=== PATIENT | female | born 1970 | race African-American/Black ===

== ENCOUNTER 2017-03-15 17:16 | Emergency (ER) | payer MEDICAID ==
[~2017-03-15] VITALS: Ht 177.8 cm; Wt 123.4 kg
[2017-03-15 18:00] VITALS: BP 198/141
[2017-03-15] MEDS ORDERED: HYDROcodone-ACET 10/325MG TAB PO ONE (20:30)
[2017-03-15] MEDS ORDERED: MORPHINE SULFATE 4 MG/ML SYRG IM ONE (20:45)
[2017-03-15] MEDS ORDERED: cloNIDine HCL 0.1 MG TAB PO ONE (21:15)
== END 2017-03-15 21:50 | disposition home or self-care (01) ==
LOC: ER 17:20
DX: S33.5XXA Sprain of ligaments of lumbar spine, initial encounter (principal); R51 Headache; I10 Essential (primary) hypertension; I25.2 Old myocardial infarction; Z86.73 Personal history of transient ischemic attack (TIA), and cerebral infarction without residual deficits; Z88.6 Allergy status to analgesic agent; Z85.43 Personal history of malignant neoplasm of ovary; Z86.711 Personal history of pulmonary embolism; G89.29 Other chronic pain; X58.XXXA Exposure to other specified factors, initial encounter; Y99.8 Other external cause status; Y93.89 Activity, other specified; Y92.89 Other specified places as the place of occurrence of the external cause
CPT/HCPCS: 70450; 72131; 96372; 99284; J2270

== ENCOUNTER 2017-05-20 14:10 | Emergency (ER) | payer MEDICARE, MEDICAID ==
[~2017-05-20] VITALS: Ht 175.3 cm; Wt 113.4 kg
[2017-05-20 15:00] LABS: Basophils # (auto) 0.1 uL; Basophils % (auto) 1.8 % (0.0-2.0); CONDITION Y; Eosinophils # (auto) 0 uL; Eosinophils % (auto) 0.5 % (0.0-7.0); Hematocrit 38.9 % (36.0-46.0); Hemoglobin 13.1 g/dL (12.2-16.2); Lymphocytes # (auto) 2.8 uL; Lymphocytes % (auto) 40.6 % (10.0-50.0); Mean Corpuscular Hemoglobin 32.3 pg (28.0-32.0); Mean Corpuscular Hgb Conc. 33.7 g/dL (32.0-36.0); Mean Corpuscular Volume 95.6 fL (80.0-100.0); Mean Platelet Volume 8.8 fL (7.4-10.4); Monocytes # (auto) 0.3 uL; Monocytes % (auto) 4.8 % (0.0-12.0); Neutrophils # (auto) 3.6 uL; Neutrophils % (auto) 52.3 % (37.0-80.0); Platelet Count (auto) 281 10^3/uL (140-450); White Blood Cell 6.8 10^3/uL (4.4-10.8)
[2017-05-20 15:22] LABS: Albumin 3.8 g/dL (3.4-5.0); BUN/Creatinine Ratio 17.9; Calcium 9.1 mg/dL (8.5-10.1); Potassium 3.6 mmol/L (3.5-5.1)
[2017-05-20 15:25] LABS: Bilirubin, Total 0.4 mg/dL (0.2-1.0)
[2017-05-21 00:12] LABS: Urine RBC None Seen /hpf (0 - 4)
[2017-05-21 00:25] LABS: Urine Bilirubin Negative (Negative); Urine Blood Negative /uL (Negative); Urine Color Yellow (Yellow); Urine Glucose Normal (Normal); Urine Ketone Negative (Negative); Urine Mucus MODERATE (None Seen); Urine Nitrite Negative (Negative); Urine Squamous Epithelial Cell MOD /hpf (<5); Urine Urobilinogen Normal (Negative)
[2017-05-21] MEDS ORDERED: NITROFURANTOIN (MONO) 100 mg CAP PO ONE (00:45)
[2017-05-21] MEDS ORDERED: KETOROLAC TROMETH 30 MG/ML 1ML VIAL IV ONE (01:00)
[2017-05-21] MEDS ORDERED: ONDANSETRON HCL 4 MG/2 ML VIAL IV ONE (01:00)
[2017-05-21 01:33] VITALS: BP 150/105
[2017-05-21] MEDS ORDERED: cloNIDine HCL 0.1 MG TAB PO ONE (01:45)
== END 2017-05-21 02:32 | disposition home or self-care (01) ==
LOC: ER 14:21
DX: N39.0 Urinary tract infection, site not specified (principal); I10 Essential (primary) hypertension; I25.2 Old myocardial infarction; Z86.711 Personal history of pulmonary embolism; Z90.710 Acquired absence of both cervix and uterus; Z88.6 Allergy status to analgesic agent; Z86.73 Personal history of transient ischemic attack (TIA), and cerebral infarction without residual deficits
CPT/HCPCS: 36415; 71010; 74176; 80053; 81001; 85025; 93970; 96374; 96375; 99285; J1885

== ENCOUNTER 2024-04-14 08:12 | Inpatient (IN) | payer BC, MEDICAID ==
[~2024-04-14] VITALS: Ht 175.3 cm; Wt 125.5 kg
[~2024-04-14 08:12] MED LIST: AMLO1TAB23 PO; DICL75TA3 PO; ESTR0.3T PO; HYDR25TA4 PO; METO25TA93 PO; OXYC325T14 PO
[2024-04-14] MEDS: ceFAZolin 2 GM/D5W50ml 50 ML IV ONE (09:03)
[2024-04-14] MEDS: TRANEXAMIC ACID 20 ML ONE (09:56)
[2024-04-14] MEDS: LIDOCAINE 2% JELLY 11ml (GLYDO) ONE (09:56)
[2024-04-14] MEDS: levoFLOXacin 750MG 150 ML IV ONE (10:00)
[2024-04-14] MEDS ORDERED: fentaNYL CITRATE 5 ML ONE ×2 (10:01→13:43)
[2024-04-14] MEDS ORDERED: fentaNYL CITRATE 100 MCG/2 ML VL ONE ×2 (10:01→12:52)
[2024-04-14] MEDS: SUCCINYLCHOLINE CHLORIDE 20 MG/ML 10ML VIAL IV ONE (10:02)
[2024-04-14] MEDS ORDERED: ONDANSETRON HCL 4 MG/2 ML VIAL ONE (11:58)
[2024-04-14] MEDS ORDERED: ePHEDrine SULFATE 50 MG/ML AMP ONE (12:23)
[2024-04-14] MEDS: LIDOCAINE W/ EPINEPHRINE 1% 20ML VIAL ONE (12:32)
[2024-04-14] MEDS ORDERED: MEPERIDINE HCL (50 MG/ML) 1 ML VIAL ONE (12:38)
[2024-04-14] MEDS ORDERED: PHENYLEPHRINE HCL 10 MG/ML VL ONE ×2 (12:58→14:22)
[2024-04-14] MEDS ORDERED: PROPOFOL 10 MG/ML 20 ML IV ONE ×2 (13:01→14:16)
[2024-04-14] MEDS ORDERED: NITROGLYCERIN 0.4 MG SL TAB SL PRN (15:15)
[2024-04-14] MEDS ORDERED: MORPHINE SULFATE INJ 2 MG/ml SYRG IV PRN ×2 (15:15)
[2024-04-14 15:45] VITALS: PULSE 88; RESP 18; O2SAT 100
[2024-04-14 15:54] VITALS: PULSE 65; RESP 15; O2SAT 100
[2024-04-14] MEDS: ONDANSETRON HCL 4 MG/2 ML VIAL IV ONE (16:15)
[2024-04-14] MEDS ORDERED: MEPERIDINE HCL (25 MG/ML) 1ML VIAL IV PRN (16:15)
[2024-04-14] MEDS: HYDROmorphone HCL 2 MG/ML VL/or syr IV PRN (16:47)
[2024-04-14 17:38] VITALS: PULSE 88; RESP 18
[2024-04-14] MEDS: D5W/SOD CHLO 0.9% 1,000 ML IV SCH (17:56)
[2024-04-14] MEDS ORDERED: LISI20TA56 PO (18:07)
[2024-04-14] MEDS: ONDANSETRON HCL 4 MG/2 ML VIAL IV PRN (18:14)
[2024-04-14] MEDS: ceFAZolin 1GM/50ML 50 ML IV SCH (18:29)
[2024-04-14] MEDS: HYDROcodone-ACET 10/325MG TAB PO PRN (18:42)
[2024-04-14 20:00] VITALS: PULSE 71; RESP 18; O2SAT 100
[2024-04-14 21:00] VITALS: BP 118/68; PULSE 71; RESP 19; TEMP 98.2; O2SAT 100
[2024-04-14] MEDS: DOCUSATE SOD 100 MG CAP PO SCH (21:06)
[2024-04-14] MEDS: CYCLOBENZAPRINE HCL 10 MG TAB PO SCH (21:06)
[2024-04-14] MEDS: HYDROcodone-ACET 10/325MG TAB PO ONE (21:24)
[2024-04-15] VITALS (7 sets, daily range): BP systolic 99–121; BP diastolic 59–95; PULSE 70–92; RESP 16–19; TEMP 98–99.1; O2SAT 93–100
[2024-04-15] MEDS: hydroCHLOROthiazide 25 MG TAB PO SCH (09:40)
[2024-04-15] MEDS: HYDROcodone-ACET 10/325MG TAB PO PRN (15:19)
[2024-04-15] MEDS: HYDROmorphone HCL 2 MG/ML VL/or syr IV PRN (15:27)
[2024-04-15] MEDS: ACETAMINOPHEN 325 MG TAB PO PRN (21:02)
[2024-04-16 00:34] VITALS: BP 107/70; PULSE 94; RESP 18; TEMP 98.3; O2SAT 97
[2024-04-16 04:49] VITALS: BP 110/72; PULSE 91; RESP 18; TEMP 99.1; O2SAT 95
[2024-04-16 08:39] VITALS: BP 125/74; PULSE 90; RESP 14; TEMP 98.5; O2SAT 95
[2024-04-16 12:46] VITALS: BP 109/55; PULSE 102; RESP 14; TEMP 99.5; O2SAT 95
[2024-04-16 17:00] VITALS: BP 107/74; PULSE 103; RESP 18; TEMP 98.7; O2SAT 98
[2024-04-16 21:49] VITALS: BP 130/80; PULSE 93; RESP 18; TEMP 98.5; O2SAT 95
[2024-04-17] VITALS (7 sets, daily range): BP systolic 124–147; BP diastolic 75–88; PULSE 69–111; RESP 17–20; TEMP 97.7–99; O2SAT 93–98
[2024-04-18 01:00] VITALS: BP 134/83; PULSE 88; RESP 17; TEMP 97.8; O2SAT 96
[2024-04-18 05:00] VITALS: BP 111/69; PULSE 95; RESP 19; TEMP 99.2; O2SAT 96
[2024-04-18 06:06] LABS: Eosinophils # (auto) 0.1 10 ^3/uL (0-0.8); Hematocrit 31.7 % (36.0-46.0); Hemoglobin 11.1 g/dL (12.2-16.2); Monocytes # (auto) 0.6 10 ^3/uL (0-1.3); Nucleated Red Blood Cells % 0.1 %; Red Blood Cells 3.11 10^6/uL (4.0-5.20); White Blood Cell 6.2 10^3/uL (4.4-10.8)
[2024-04-18 06:11] LABS: Basophils # (auto) 0.1 10 ^3/uL (0-0.2); Basophils % (auto) 0.8 % (0.0-2.0); Eosinophils % (auto) 2.2 % (0.0-7.0); Lymphocytes # (auto) 1.3 10 ^3/uL (0.4-5.4); Lymphocytes % (auto) 20.2 % (10.0-50.0); Mean Corpuscular Hemoglobin 35.8 pg (28.0-32.0); Mean Corpuscular Hgb Conc. 35.1 g/dL (32.0-36.0); Monocytes % (auto) 10.3 % (0.0-12.0); Neutrophils # (auto) 4.1 10 ^3/uL (1.6-8.6); Neutrophils % (auto) 66.5 % (37.0-80.0); Platelet Count (auto) 200 10^3/uL (140-450); Red Cell Distribution Width 13.9 % (11.8-14.3)
[2024-04-18 06:24] LABS: Anion Gap 8 (5-15); Carbon Dioxide 28 mmol/L (20-30); Chloride 101 mmol/L (98-107); Potassium 3.4 mmol/L (3.5-5.1); Sodium 137 mmol/L (136-145)
[2024-04-18 06:25] LABS: Calcium 9.3 mg/dL (8.7-10.4)
[2024-04-18 06:30] LABS: BUN/Creatinine Ratio 8.7 (10.0-20.0); Blood Urea Nitrogen 6 mg/dL (9-23); Glucose 97 mg/dL (74-106)
[2024-04-18 08:15] VITALS: BP 130/89; PULSE 87; RESP 18; TEMP 97.7; O2SAT 100
[2024-04-18] MEDS: HYDROmorphone HCL 2 MG/ML VL/or syr IV ONE (11:00)
[2024-04-18 13:00] VITALS: BP 138/82; PULSE 87; RESP 18; TEMP 97.8; O2SAT 98
[2024-04-18] MEDS: POTASSIUM EFFERVESENT TAB 25 MEQ PO ONE (14:19)
[2024-04-18] MEDS: SODIUM CHLORIDE 0.9% 1,000 ML IV SCH (14:32)
[2024-04-18 16:33] VITALS: BP 135/85; PULSE 77; RESP 16; TEMP 97.1; O2SAT 96
[2024-04-18 21:00] VITALS: BP 117/81; PULSE 100; RESP 18; TEMP 98.4; O2SAT 95
[2024-04-18] MEDS: IBUPROFEN 800 MG TAB PO PRN (21:32)
[2024-04-19 05:00] VITALS: BP 114/79; PULSE 88; RESP 18; O2SAT 92
[2024-04-19 07:00] LABS: Basophils # (auto) 0.1 10 ^3/uL (0-0.2); Eosinophils # (auto) 0.2 10 ^3/uL (0-0.8); Monocytes # (auto) 0.6 10 ^3/uL (0-1.3); Nucleated Red Blood Cells % 0.1 %
[2024-04-19 07:02] LABS: Basophils % (auto) 1.3 % (0.0-2.0); Eosinophils % (auto) 3.5 % (0.0-7.0); Hematocrit 31.7 % (36.0-46.0); Hemoglobin 10.9 g/dL (12.2-16.2); Lymphocytes # (auto) 1.5 10 ^3/uL (0.4-5.4); Lymphocytes % (auto) 32.2 % (10.0-50.0); Mean Corpuscular Hemoglobin 35.1 pg (28.0-32.0); Mean Corpuscular Hgb Conc. 34.5 g/dL (32.0-36.0); Mean Corpuscular Volume 101.7 fL (80.0-100.0); Monocytes % (auto) 13.6 % (0.0-12.0); Neutrophils # (auto) 2.3 10 ^3/uL (1.6-8.6); Neutrophils % (auto) 49.4 % (37.0-80.0); Platelet Count (auto) 225 10^3/uL (140-450); Red Blood Cells 3.11 10^6/uL (4.0-5.20); Red Cell Distribution Width 13.5 % (11.8-14.3); White Blood Cell 4.7 10^3/uL (4.4-10.8)
[2024-04-19 07:19] LABS: Alanine Aminotransferase 20 U/L (7-40); Albumin 4.1 g/dL (3.2-4.8); Alkaline Phosphatase 98 U/L (46-116); Anion Gap 7 (5-15); Aspartate Aminotransferase 25 U/L (13-40); BUN/Creatinine Ratio 14.8 (10.0-20.0); Blood Urea Nitrogen 12 mg/dL (9-23); Calcium 9.4 mg/dL (8.7-10.4); Carbon Dioxide 28 mmol/L (20-30); Chloride 102 mmol/L (98-107); Glucose 99 mg/dL (74-106); Magnesium 2.1 mg/dL (1.6-2.6); Potassium 3.9 mmol/L (3.5-5.1); Sodium 137 mmol/L (136-145)
[2024-04-19 07:20] LABS: Bilirubin, Total 0.4 mg/dL (0.2-1.0); Total Protein 6.6 g/dL (5.7-8.2)
[2024-04-19 08:47] VITALS: BP 118/65; PULSE 61; RESP 17; TEMP 97.5; O2SAT 100
[2024-04-19 13:00] VITALS: BP 117/68; PULSE 103; RESP 16; TEMP 98.3; O2SAT 92
[2024-04-19] MEDS ORDERED: ONDANSETRON ODT 4 MG TAB PO PRN (13:45)
[2024-04-19 16:31] VITALS: BP 125/79; PULSE 67; RESP 17; TEMP 99.2; O2SAT 99
[2024-04-19] MEDS: OXYCODONE W/ ACETAMINOPHEN 5/325MG TABLET PO PRN (16:33)
[2024-04-19 21:00] VITALS: BP 123/70; PULSE 97; RESP 18; TEMP 98.6; O2SAT 99
[2024-04-20] VITALS (7 sets, daily range): BP systolic 104–130; BP diastolic 61–91; PULSE 86–98; RESP 17–20; TEMP 97.9–98.4; O2SAT 93–100
[2024-04-21] VITALS (7 sets, daily range): BP systolic 126–142; BP diastolic 76–97; PULSE 84–139; RESP 18–21; TEMP 36.3; O2SAT 94–100
[2024-04-21] MEDS ORDERED: CYCL-611 PO (14:35)
== END 2024-04-21 20:30 | disposition home health service (06) | DRG 454 ==
LOC: SUR 08:12 → OVERFLOW 17:57 → WEST WING 18:00
PROVIDERS: ADMIT Orthopaedic Surgery; ATTEND Hospitalist
PROC: 01NB0ZZ Release Lumbar Nerve, Open Approach (ICD-10-PCS; 2024-04-14)
PROC: 00NY0ZZ Release Lumbar Spinal Cord, Open Approach (ICD-10-PCS; 2024-04-14)
PROC: 4A11X4G Monitoring of Peripheral Nervous Electrical Activity, Intraoperative, External Approach (ICD-10-PCS; 2024-04-14)
PROC: 0SG1071 Fusion of 2 or more Lumbar Vertebral Joints with Autologous Tissue Substitute, Posterior Approach, Posterior Column, Open Approach (ICD-10-PCS; 2024-04-14)
PROC: 0SG00AJ Fusion of Lumbar Vertebral Joint with Interbody Fusion Device, Posterior Approach, Anterior Column, Open Approach (ICD-10-PCS; principal; 2024-04-14 10:54)
PROC: 05HC33Z Insertion of Infusion Device into Left Basilic Vein, Percutaneous Approach (ICD-10-PCS; 2024-04-20)
PROC: B54NZZA Ultrasonography of Left Upper Extremity Veins, Guidance (ICD-10-PCS; 2024-04-20)
DX: M48.062 Spinal stenosis, lumbar region with neurogenic claudication (principal); Z68.41 Body mass index [BMI] 40.0-44.9, adult; M96.1 Postlaminectomy syndrome, not elsewhere classified; I10 Essential (primary) hypertension; E66.01 Morbid (severe) obesity due to excess calories; M47.26 Other spondylosis with radiculopathy, lumbar region; M43.16 Spondylolisthesis, lumbar region; Z88.5 Allergy status to narcotic agent
CPT/HCPCS: 36415; 70450; 71250; 72100; 72125; 74176; 76000; 80048; 80053; 83735; 85025; 86850; 86900; 86901; 97110; 97116; 97163; 97530; G0378; J0330; J1956; J2405; J2704

== ENCOUNTER 2024-10-13 08:21 | Inpatient (IN) | payer BC, MEDICAID ==
[~2024-10-13] VITALS: Ht 175.3 cm; Wt 117.3 kg
[~2024-10-13 08:21] MED LIST changes: +CYCL-611 PO; +LISI20TA56 PO
[2024-10-13] MEDS ORDERED: ONDANSETRON HCL 4 MG/2 ML VIAL ONE (09:23)
[2024-10-13] MEDS ORDERED: GLYCOPYRROLATE 0.2 MG/ML 1ML VIAL ONE (09:23)
[2024-10-13] MEDS ORDERED: PROPOFOL 10 MG/ML 20 ML IV ONE ×4 (09:23→13:17)
[2024-10-13] MEDS ORDERED: DexAMETHasone SOD PHOS 10MG/1ML VIAL INJ ONE (09:23)
[2024-10-13] MEDS ORDERED: fentaNYL CITRATE 100 MCG/2 ML VL ONE (09:24)
--- NOTE | 2024-10-13 10:26 | DVHHP2 ---
Admitting Diagnosis: cervical spinal stenosis with incapacitating radiculopathy History of Present Illness HPI This pleasant lady well known to me was previously treated with a lumbar spine surgery by me comes in for elective cervical spine surgery after failing conservative management. Home Meds Active Scripts Cyclobenzaprine HCl (Cyclobenzaprine Hydrochlo) 10 Mg Tab, 10 MG PO BID, #14 TAB Prov:BEE LEE MD 04/21/24 Reported Medications Lisinopril (Lisinopril) 20 Mg Tab, 1 TAB PO DAILY, #30 TAB 5 Refills 04/14/24 Diclofenac Sodium (Diclofenac Sodium Dr) 75 Mg Tab, 75 MG PO, TAB 04/09/24 Hydrochlorothiazide (Hydrochlorothiazide) 25 Mg Tab, 25 MG PO DAILY, TAB 04/09/24 Oxycodone W/ Acetaminophen (Apap/Oxycodone) 1 Tab Tab, 1 TAB PO, TAB 04/09/24 Estrogens, Conjugated (PREMARIN TABLET) 0.3 Mg Tb, 0.9 MG PO, TAB 04/09/24 Metoprolol Succinate (Metoprolol Succinate Er) 25 Mg Tab, 25 MG PO DAILY, TAB 04/09/24 Amlodipine Besylate (Amlodipine Besylate) 10 Mg Tab, 10 MG PO DAILY, TAB 04/09/24 Timing/Duration of Neck Pain: Getting worse Quality of Neck Pain: Aching, Burning, Cramping Associated Symptoms of Neck Pa: Muscle spasms, Numbness in upper extremi, Numbness in fingers, Tingling in upper extremi, Tingling in fingers, Sensory loss Review of Systems Constitutional: No symptom reported Ears, Nose, & Throat: No symptom reported Eyes: No symptom reported Pulmonary/Respiratory: No symptom reported Cardiovascular: No symptom reported Gastrointestinal: No symptom reported Genitourinary: No symptom reported Musculoskeletal: No symptom reported Skin: No symptom reported Psychiatric: No symptom reported Endocrine: No symptom reported Hemotologic/Lymphatic: No symptom reported H&P Exam Vital Signs Vital Signs Date Time Temp Pulse Resp B/P (MAP) Pulse Ox O2 Delivery O2 Flow Rate FiO2 10/13/24 08:45 97.4 76 18 123/83 (96) 100 97.4 General Appeara: Well developed, Well nourished, Normal Appearance Head Exam: Normal inspection Neck Exam: Muscle spasm, Painful range of motion, Stiff neck, Tenderness Eye Exam: bilateral eye Normal inspection, bilateral eye PERRL, bilateral eye EOMI Nasal Exam: Normal inspection Mouth: Normal Inspection Pulmonary/Respiratory: Normal inspection, Normal breath sounds, Chest non- tender, Lungs clear Cardiovascular/Chest: Normal inspection, Regular rate, Normal Rhythm Abdominal Exam: Normal bowel sounds, Soft, No tenderness, No hepatospenomegaly, No masses Rectal Exam: Deferred Back Exam: Decreased range of motion, Muscle spasm Pelvic Exam: Not done Male Genital Exam: Not done Shoulder Exam: Normal inspection, Non-tender, Normal ROM Elbow/Forearm Exam: Normal inspection, Non-tender, Normal ROM Wrist Exam: Normal inspection, Non-tender, Normal ROM Hand Exam: Normal inspection, Non-tender, Normal ROM Hip exam: Normal inspection, Non-tender, Normal range of motion Legs: bilateral leg non-tender, bilateral leg normal inspection, bilateral leg normal range of motion, bilateral leg no evidence of injury Knees: bilateral knee non-tender, bilateral knee normal inspection, bilateral knee normal range of motion, bilateral knee no evidence of injury Ankle Exam: bilateral ankle Normal inspection, bilateral ankle Non-tender, bilateral ankle Normal range of motion, bilateral ankle No evidence of injury Foot: bilateral foot non-tender, bilateral foot normal inspection, bilateral foot normal range of motion, bilateral foot no evidence of injury Tendon/ Neuro: Motor deficit, Sensory deficit SECTION HAND Exam: Normal hearing, Normal speech, PERRL Motor/Sensory: Sensory deficit, Weak motor strength RUE, Weak motor strength LUE Neuro/Mental St: Alert, Oriented Appearance: Appropriate appearance Eye contact/ Speech: Cooperative, Good eye contact, Normal speech Coordination/Gait: Abnormal gait Skin Exam: Normal inspection, Normal color, Warm/dry Lymphatic: Normal inspection Labs/Xrays SUSI COLLINS : 1970 Sex: F Date of Service: 02-19-2024 EXAM: MRI OF THE CERVICAL SPINE WITHOUT INTRAVENOUS CONTRAST HISTORY: Neck pain radiating to the bilateral upper extremities TECHNIQUE: A 3.0 Sandrita MRI of the cervical spine was performed without intr avenous contrast material. COMPARISON: MRI cervical spine 05/20/2020 FINDINGS: There is minimal reversal of the cervical lordosis. Vertebral body heights are preserved. Minimal edema at is seen at the C3-4 endplates, which is unchanged. No new site of marrow edema is identified. Multilevel mild intervertebral disc height loss is seen. No progressive disc height loss is noted. The spinal cord signal is preserved. No spinal cord compression is seen. The visualized posterior fossa is unremarkable. The paravertebral soft tissues are unremarkable. SIGNIFICANT FINDINGS BY LEVEL: C2-3: Symmetric tiny disc bulge. No uncovertebral hypertrophy or facet arthropathy. No neural foraminal or spinal canal stenosis. C3-4: Symmetric disc-osteophyte complex, uncovertebral hypertrophy, and no significant facet arthropathy, resulting in moderate to severe right and moderate left neural foraminal stenosis and no spinal canal stenosis. C4-5: Symmetric disc-osteophyte complex, uncovertebral hypertrophy, and no significant facet arthropathy, resulting in severe right and [id number] left neural foraminal stenosis and no spinal canal stenosis. C5-6: Symmetric disc-osteophyte complex, uncovertebral hypertrophy, and no significant facet arthropathy, resulting in [id number] bilateral neural foraminal stenosis and no spinal canal stenosis. C6-7: Symmetric disc-osteophyte complex, left greater than right uncovertebral hypertrophy, and no significant facet arthropathy, resulting in moderate left neural foraminal stenosis and no spinal canal stenosis. C7-T1: Asymmetric left-sided disc bulge and no significant facet arthropathy resulting in mild left neural foraminal stenosis and no spinal canal stenosis. These degenerative changes are not detected with progressed 05/20/2020. IMPRESSION: No definite progression in degenerative change from 05/2020 resulting in at least moderate neural foraminal stenosis bilaterally from C3-4 through C5-6 and on the left at C6-7. No spinal canal stenosis. IF YOU ARE A PROVIDER AND WOULD LIKE TO CONTACT THE RADIOLOGIST PLEASE CALL . IF YOU ARE THE PATIENT AND HAVE QUESTIONS REGARDING YOUR RESULTS PLEASE CONTACT YOUR PROVIDER DIRECTLY. End of diagnostic report for accession: [id number] Dictated: 02-29-2024 9:39:59 AM Electronically Signed By: Macy Panda MD 02-29-2024 9:39:59 Assessment/Plan Primary Diagnosis cervical spinal stenosis with severe radiculopathy admit for elective cervical spine surgery 2' Diagnosis/Co-morbidities admit for elective cervical spine surgery Plan discussed with: Patient JULIO CESAR SOUSA MD Oct 13, 2024 10:26
[2024-10-13] MEDS: CIPROFLOXACIN 400MG/200ML 400 ML IV ONE (10:44)
[2024-10-13] MEDS: ceFAZolin 1GM/50ML 100 ML IV ONE (10:45)
[2024-10-13] MEDS ORDERED: GABAPENTIN 400 MG CAP PO ONE (10:45)
[2024-10-13] MEDS: oxyCODONE ER 20 MG TAB PO ONE ×2 (10:45→10:53)
[2024-10-13] MEDS: ACETAMINOPHEN IV 1000 MG/100ML (10MG/ML) IV ONE (10:45)
[2024-10-13] MEDS: TRANEXAMIC ACID 20 ML ONE (10:48)
[2024-10-13] MEDS: ACETAMINOPHEN IV 100 ML IV ONE (10:54)
[2024-10-13] MEDS: GABAPENTIN 400 MG CAP ONE (10:54)
[2024-10-13] MEDS: MAGNESIUM SULFATE 1GM/100ML 100 ML IV ONE (11:01)
[2024-10-13] MEDS ORDERED: KETAMINE 50mg/ML 1ml syringe ONE (11:02)
[2024-10-13] MEDS: LIDOCAINE 4MG/ML IV SOLN 500 ML IV ONE (11:16)
[2024-10-13] MEDS: LIDOCAINE 2%HCL (LOCAL ANESTH.) INJ 10ml MDV ONE (11:16)
[2024-10-13] MEDS ORDERED: SODIUM CHLORIDE LOCK 10 ML ONE (12:12)
[2024-10-13] MEDS ORDERED: ePHEDrine SULFATE 50 MG/ML AMP ONE (12:12)
[2024-10-13] MEDS ORDERED: MORPHINE SULFATE INJ 2 MG/ml SYRG IV PRN ×2 (14:00)
[2024-10-13] MEDS: CYCLOBENZAPRINE HCL 10 MG TAB PO SCH (14:00)
[2024-10-13] MEDS: ceFAZolin 1GM/50ML 50 ML IV SCH (14:00)
[2024-10-13] MEDS: D5W/SOD CHLO 0.9% 1,000 ML IV SCH (14:00)
[2024-10-13] MEDS ORDERED: ACETAMINOPHEN 325 MG TAB PO PRN (14:00)
[2024-10-13] MEDS ORDERED: NITROGLYCERIN 0.4 MG SL TAB SL PRN (14:00)
[2024-10-13 14:22] VITALS: PULSE 82; RESP 20; O2SAT 98
[2024-10-13] MEDS ORDERED: oxyCODONE HCL 5MG TAB PO PRN (14:45)
[2024-10-13] MEDS ORDERED: ePHEDrine SULFATE 50 MG/ML AMP IV PRN (14:45)
[2024-10-13] MEDS ORDERED: ONDANSETRON HCL 4 MG/2 ML VIAL IV PRN (14:45)
[2024-10-13] MEDS ORDERED: fentaNYL CITRATE 100 MCG/2 ML VL IV PRN (14:45)
[2024-10-13] MEDS ORDERED: NALOXONE HCL 0.4 MG/ML VIAL IV PRN (14:45)
[2024-10-13] MEDS ORDERED: FLUMAZENIL 0.1 MG/ML INJ 10ML MDV IV PRN (14:45)
[2024-10-13] MEDS ORDERED: hydrALAZINE HCL 20 MG/ML VL IV PRN (14:45)
--- NOTE | 2024-10-13 15:00 | DVH ---
C-ARM FLUOROSCOPY: PROCEDURE: c4-c7 dissectomy and fusion FLUOROSCOPY TIME: 16.5 sec DAP: 2.06 mgy FINDINGS: Spot intraoperative C arm radiographs demonstrating c4-c7 dissectomy and fusion . IMPRESSION: Please refer to surgical report for detailed findings.
[2024-10-13 16:21] VITALS: BP 139/82; PULSE 82; RESP 18; TEMP 97.8; O2SAT 94
[2024-10-13] MEDS: ONDANSETRON HCL 4 MG/2 ML VIAL IV PRN (16:42)
[2024-10-13] MEDS: HYDROmorphone HCL 2 MG/ML VL/or syr IV PRN ×2 (16:43→20:56)
[2024-10-13 16:52] VITALS: BP 139/82; PULSE 82; RESP 20; TEMP 97.5; O2SAT 94
--- NOTE | 2024-10-13 17:42 | DVHINCON2 ---
Date Seen: Oct 13, 2024 Referring Physician Spine surgery. Reason for Consultation Medical management. History of Present Illness 54-year-old female with a known history of hypertension, history of brain aneurysm status post coiling, history of ovarian cancer status post total abdominal hysterectomy with bilateral salpingo-oophorectomy, multiple back surgery, previous history of a submucous spine surgery. Patient was brought in by spine surgery for elective surgery for cervical spine radiculopathy. Patient was status post C4 through C7 anterior cervical diskectomy postop day 0. Past Medical History Hypertension Chronic back pain Chronic neck pain History of brain aneurysm Past Surgical History Multiple back surgery Previous history of cervical spine surgery History of brain aneurysm status post coiling History of ovarian cancer status post total abdominal hysterectomy with bilateral salpingo-oophorectomy Allergies: Coded Allergies: Gabapentin (Unverified Allergy, Severe, anaphylaxis, 04/09/24) Morphine (Verified Allergy, Unknown, 03/15/17) Home Meds Active Scripts Cyclobenzaprine HCl (Cyclobenzaprine Hydrochlo) 10 Mg Tab, 10 MG PO BID, #14 TAB Prov:BEE LEE MD 04/21/24 Reported Medications Lisinopril (Lisinopril) 20 Mg Tab, 1 TAB PO DAILY, #30 TAB 5 Refills 04/14/24 Diclofenac Sodium (Diclofenac Sodium Dr) 75 Mg Tab, 75 MG PO, TAB 04/09/24 Hydrochlorothiazide (Hydrochlorothiazide) 25 Mg Tab, 25 MG PO DAILY, TAB 04/09/24 Oxycodone W/ Acetaminophen (Apap/Oxycodone) 1 Tab Tab, 1 TAB PO, TAB 04/09/24 Estrogens, Conjugated (PREMARIN TABLET) 0.3 Mg Tb, 0.9 MG PO, TAB 04/09/24 Metoprolol Succinate (Metoprolol Succinate Er) 25 Mg Tab, 25 MG PO DAILY, TAB 04/09/24 Amlodipine Besylate (Amlodipine Besylate) 10 Mg Tab, 10 MG PO DAILY, TAB 04/09/24 Current Medications Current Medications Medications (Trade) Dose Ordered Sig/Bia Route PRN Reason Start Time Stop Time Status Last Admin Dextrose/Sodium Chloride 1,000 ml @ 100 mls/hr Q10H IV 10/13/24 14:00 10/13/24 17:04 Ondansetron HCl (Zofran) 4 mg Q4HP PRN IV NAUSEA / VOMITING 10/13/24 14:00 10/13/24 16:42 Acetaminophen (Tylenol Tablet) 650 mg Q6HP PRN PO MILD PAIN (1-3 PAIN SCALE) 10/13/24 14:00 Acetaminophen/ Hydrocodone Bitart ([place] 10/325MG Tab) 1 tab Q6HP PRN PO MODERATE PAIN (4-6 PAIN SCALE) 10/13/24 14:00 Morphine Sulfate 1 mg Q4HP PRN IV SEVERE PAIN (7-10 PAIN SCALE) 10/13/24 14:00 Hold Cyclobenzaprine HCl (Flexeril Tablet) 10 mg TID PO 10/13/24 14:00 Docusate Sodium (Colace Capsule) 100 mg BID PO 10/13/24 22:00 Cefazolin Sodium 50 ml @ 100 mls/hr Q8HR IV 10/13/24 14:00 10/15/24 06:29 Nitroglycerin (Ntrostat Sublingual) 0.4 mg Q5MINP PRN SL FOR CHEST PAIN 10/13/24 14:00 Morphine Sulfate 2 mg Q30M PRN IV FOR CHEST PAIN 10/13/24 14:00 Hold Ondansetron HCl (Zofran) 4 mg ONCE PRN IV NAUSEA / VOMITING 10/13/24 14:45 10/13/24 14:51 DC Naloxone HCl (Narcan) 0.4 mg Q10M PRN IV NARCOTIC REVERSAL 10/13/24 14:45 10/13/24 15:06 DC Flumazenil (Romazicon Injection) 0.2 mg ONCE PRN IV BENZODIAZEPINE REVERSAL 10/13/24 14:45 10/13/24 14:51 DC Hydralazine HCl (Apresoline Injection) 5 mg Q10M PRN IV SBP>160 10/13/24 14:45 10/13/24 15:36 DC Ephedrine Sulfate (ePHEDrine SULFATE) 10 mg Q10M PRN IV SBP LESS THAN 90 10/13/24 14:45 10/13/24 15:26 DC Fentanyl Citrate 25 mcg Q1HP PRN IV BREAKTHROUGH PAIN (7-10) 10/13/24 14:45 10/13/24 18:00 Hydromorphone HCl (Dilaudid Injection) 0.5 mg Q10M PRN IV SEVERE PAIN (7-10 PAIN SCALE) 10/13/24 14:45 10/13/24 18:00 10/13/24 16:43 Oxycodone HCl 10 mg ONCE PRN PO MODERATE PAIN (4-6 PAIN SCALE) 10/13/24 14:45 10/13/24 18:00 Review of Systems 12 review of system were negative except mentioned above. 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 Assessment 54-year-old female with a known history of hypertension, known history of multiple back surgery and C-spine surgery, history of ovarian cancer status post total abdominal hysterectomy with a bilateral salpingo-oophorectomy who was brought in by spine surgery for elective surgery for C-spine. 1. Cervical radiculopathy status post C4 through C7 anterior diskectomy 2. Hypertension 3. Previous history of multiple back surgery and neck surgery 4. History of brain aneurysm status post coiling 5. History of ovarian cancer status post total abdominal hysterectomy with bilateral salpingo-oophorectomy -thank you very much for the consultation, resume home medications,-DVT GI prophylaxis Pain meds as needed, spine surgery recommendations. Problems(with codes): (1) Lumbar stenosis with neurogenic claudication Plan discussed with: Patient, Other Date of Service: Oct 13, 2024 Billing Provider: HIRAM LANG MD Common Visit Codes: NOT BILLABLE HIRAM LANG MD Oct 13, 2024 17:42
[2024-10-13 18:57] LABS: Basophils # (auto) 0.1 10 ^3/uL (0-0.2); Eosinophils # (auto) 0 10 ^3/uL (0-0.8); Hemoglobin 13.7 g/dL (12.2-16.2); Lymphocytes # (auto) 0.8 10 ^3/uL (0.4-5.4); Lymphocytes % (auto) 8.9 % (10.0-50.0); Mean Corpuscular Hemoglobin 33.8 pg (28.0-32.0); Mean Corpuscular Hgb Conc. 33.3 g/dL (32.0-36.0); Mean Corpuscular Volume 101.7 fL (80.0-100.0); Monocytes # (auto) 0.1 10 ^3/uL (0-1.3); Monocytes % (auto) 0.7 % (0.0-12.0); Neutrophils # (auto) 7.8 10 ^3/uL (1.6-8.6); Neutrophils % (auto) 89.4 % (37.0-80.0); Platelet Count (auto) 215 10^3/uL (140-450); Red Blood Cells 4.03 10^6/uL (4.0-5.20); Red Cell Distribution Width 14.2 % (11.8-14.3); White Blood Cell 8.8 10^3/uL (4.4-10.8)
[2024-10-13 19:05] LABS: Chloride 106 mmol/L (98-107); Potassium 3.7 mmol/L (3.5-5.1); Sodium 141 mmol/L (136-145)
[2024-10-13 19:06] LABS: Anion Gap 11 (5-15); Calcium 9.8 mg/dL (8.7-10.4); Carbon Dioxide 24 mmol/L (20-31)
[2024-10-13 19:21] LABS: Blood Urea Nitrogen 8 mg/dL (9-23); Glucose 124 mg/dL (74-106)
[2024-10-13 20:00] VITALS: PULSE 111
[2024-10-13 20:16] LABS: Macrocytosis Slight; Platelet Estimate Adequate
[2024-10-13] MEDS: DOCUSATE SOD 100 MG CAP PO SCH (20:51)
[2024-10-13 21:00] VITALS: BP 138/84; PULSE 103; RESP 19; TEMP 98.7; O2SAT 92
[2024-10-14] VITALS (8 sets, daily range): BP systolic 133–158; BP diastolic 67–98; PULSE 75–98; RESP 18–20; TEMP 98–98.8; O2SAT 92–97
[2024-10-14] MEDS: HYDROcodone-ACET 10/325MG TAB PO PRN (02:20)
--- NOTE | 2024-10-14 12:15 | DVHPN2 ---
Progress Note - Surgical Date Seen: Oct 14, 2024 Post op day Post op day: 1 Subjective Patient reports: No new complaints, Feels better Review of Systems: HEENT:Normal, CVS:Normal, RESPIRATORY:Normal, GI:Normal, :Normal, MSK:Normal, NEURO:Normal Objective Vital signs Vital Sign Date Time Temp Pulse Resp B/P (MAP) Pulse Ox O2 Delivery O2 Flow Rate FiO2 10/14/24 11:41 98.4 75 20 133/67 (89) 93 98.4 10/14/24 08:00 Room Air* 0 21 Total Intake and Output 10/13/24 10/13/24 10/14/24 15:00 23:00 07:00 Intake Total 200 ml 100 ml 450 ml Output Total 5 ml 940 ml Balance 195 ml -840 ml 450 ml Medications Current Medications Medications Dose Ordered Sig/Bia Route Start Time Stop Time Status Last Admin Dose Admin Dextrose/Sodium Chloride 1,000 ml @ 100 mls/hr Q10H IV 10/13/24 14:00 10/14/24 06:30 100 MLS/HR Ondansetron HCl 4 mg Q4HP PRN IV 10/13/24 14:00 10/14/24 09:33 4 MG Acetaminophen 650 mg Q6HP PRN PO 10/13/24 14:00 Acetaminophen/ Hydrocodone Bitart 1 tab Q6HP PRN PO 10/13/24 14:00 10/14/24 11:53 1 TAB Cyclobenzaprine HCl 10 mg TID PO 10/13/24 14:00 10/14/24 05:15 10 MG Docusate Sodium 100 mg BID PO 10/13/24 22:00 10/14/24 09:31 100 MG Cefazolin Sodium 50 ml @ 100 mls/hr Q8HR IV 10/13/24 14:00 10/15/24 06:29 10/14/24 05:15 100 MLS/HR Nitroglycerin 0.4 mg Q5MINP PRN SL 10/13/24 14:00 Morphine Sulfate 2 mg Q30M PRN IV 10/13/24 14:00 Hold Hydromorphone HCl 0.5 mg Q4HPRN PRN IV 10/13/24 17:45 10/14/24 09:32 0.5 MG Laboratory Laboratory Tests 10/13/24 18:10 Test 10/13/24 18:10 Range/Units Serum Glucose 124 H 74-106 mg/dL Examination: GENERAL:Normal, HEENT:Normal, NECK:Normal, LUNGS:Normal, CVS:Normal, ABDOMEN:Normal, MSK:Normal, SKIN:Normal (Left anterior neck wound well approximated with estelita no redness drainage or swelling drain is intact with 30 cc of fluid in the past 24 hours we will be discontinued today), NEURO:Normal (Patient states improvement in preoperative symptoms), :Normal Problem List/Assessment/Plan Problems: (1) Muscle spasms of neck (2) Postoperative pain after spinal surgery Assessment and Plan Patient is progressing well she is experiencing expected postoperative pain, drain was discontinued today. Patient has been ambulating she is tolerating a diet she has no nausea with p.o. fluids. States her pain is manageable with current regime Patient is progressing to discharge Call with questions Janett Diaz [facility] Orthopaedic Spine Surgery nurse practitioner For Dr Paul Michael Patient was examined, chart reviewed, labs evaluated, and diagnostic studies and findings analyzed. Case was discussed with Dr. Reilly Michael who formulated the plan of care. This medical document was created using an electronic medical record system with [employer] dictation system. Although this document has been carefully reviewed, there might still be some phonetic and typographical errors. These areas are purely typographical due to imperfections of the software programs, and do not reflect any compromise in the patient's medical care. My Orders My Orders Orders - VALENTINA DIAZ NP Procedure Category Date Status Time * Internal Medicine CONS 10/14/24 Transmitted Consult Plan discussed with Plan discussed with: Patient, Other (MIREILLE BRITO extension [id number]) Visit Coding Surgery Date of Service if different f: Oct 14, 2024 Billing Provider: VALENTINA DIAZ NP Surgery Visit Codes: NOT BILLABLE VALENTINA DIAZ NP Oct 14, 2024 12:15
--- NOTE | 2024-10-14 14:38 | DVHPN2 ---
Subjective Overnight events noted. 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 Medications Current Medications Medications Dose Ordered Sig/Bia Route Start Time Stop Time Status Last Admin Dose Admin Dextrose/Sodium Chloride 1,000 ml @ 100 mls/hr Q10H IV 10/13/24 14:00 10/14/24 06:30 100 MLS/HR Ondansetron HCl 4 mg Q4HP PRN IV 10/13/24 14:00 10/14/24 14:25 4 MG Acetaminophen 650 mg Q6HP PRN PO 10/13/24 14:00 Acetaminophen/ Hydrocodone Bitart 1 tab Q6HP PRN PO 10/13/24 14:00 10/14/24 11:53 1 TAB Cyclobenzaprine HCl 10 mg TID PO 10/13/24 14:00 10/14/24 14:25 10 MG Docusate Sodium 100 mg BID PO 10/13/24 22:00 10/14/24 09:31 100 MG Cefazolin Sodium 50 ml @ 100 mls/hr Q8HR IV 10/13/24 14:00 10/15/24 06:29 10/14/24 14:25 100 MLS/HR Nitroglycerin 0.4 mg Q5MINP PRN SL 10/13/24 14:00 Morphine Sulfate 2 mg Q30M PRN IV 10/13/24 14:00 Hold Hydromorphone HCl 0.5 mg Q4HPRN PRN IV 10/13/24 17:45 10/14/24 14:26 0.5 MG Laboratory Results Laboratory Tests 10/13/24 18:10 Chemistry Test 10/13/24 18:10 Calcium Level 9.8 mg/dL (8.7-10.4) Assessment/Plan Assessment/Plan 54-year-old female with a known history of hypertension, known history of multiple back surgery and C-spine surgery, history of ovarian cancer status post total abdominal hysterectomy with a bilateral salpingo-oophorectomy who was brought in by spine surgery for elective surgery for C-spine. 1. Cervical radiculopathy status post C4 through C7 anterior diskectomy 2. Hypertension 3. Previous history of multiple back surgery and neck surgery 4. History of brain aneurysm status post coiling -continue pain meds as needed, physical therapy evaluation treatment, follow up spine surgery -discharge plan. Plan discussed with: Patient My Orders Orders - HIRAM LANG MD Procedure Category Date Status Time Hydromorphone PHA 10/13/24 In Process Injection (Dilaudid 17:45 Date of Service: Oct 14, 2024 Billing Provider: HIRAM LANG MD Common Visit Codes: NOT BILLABLE HIRAM LANG MD Oct 14, 2024 14:38
--- NOTE | 2024-10-14 21:02 | DVHOP2 ---
Operative Report - 2 Report Details Date: 10/14/24 Preop Diagnosis: cervical spinal stenosis Postop Diagnosis: cervical spinal stenosis Surgeon: Reilly Sousa MD Coupon Collection Clerk: Nuris Diaz NP Anesthesiologist: reyna Anesthesia: General Consent: The patient was informed of the risks and benefits of the procedure. These include but are not limited to complications of anesthesia, postoperative infection, incomplete relief of symptoms, recurrence of symptoms, damage to blood vessels, nerves and tendons, deep venous thrombosis, pulmonary embolism and possible need for repeat surgery in the future. Name of Procedure Performed see detailed note Procedure Details Procedure Details: Pre Op Diagnosis: Cervical Degenerative Disk Disease and Spinal Stenosis Causing incapacitating neck pain, radiculopathy and progressive neurologic deficit Post Op Diagnosis: Cervical Degenerative Disk Disease and Spinal Stenosis Causing incapacitating neck pain, radiculopathy and progressive neurologic deficit Procedure: Cervical 4 to 5 anterior cervical discectomy with Cervical 4-5 foraminotomies and facetectomies to decompression the spinal canal and Cervical 5 nerve roots Cervical 5 to 6 anterior cervical discectomy with Cervical 5/6 foraminotomies and facetectomies to decompression the spinal canal and Cervical 6 nerve roots Cervical 6 to 7 anterior cervical discectomy with Cervical 6/7 foraminotomies and facetectomies to decompression the spinal canal and Cervical 7 nerve roots Cervical 4-7 anterior cervical Fusion Cervical 4-7 anterior cervical instrumentation with freestanding cages Cervical 4-5 placement of allograft prosthetic device Cervical 5-6 placement of allograft prosthetic device Cervical 6-7 placement of allograft prosthetic device Surgeon: Reilly Sousa MD Anesthesia: General Assist: Nuris Diaz NP Fluids and EBL: see anesthesia note Procedure Note: The patient was seen in the Pre-anesthesia Care Unit and the site of the incision was initialed by me with a felt tipped marker. All questions by the patient were answered to the satisfaction of the patient and the chart was reviewed. The patient was taken to the operating room and placed supine on the [facility] top table. General anesthesia was induced. Neuromonitoring leads were placed. A rolled towel was placed between the shoulder blades to hyperextend out the chest which will allow better exposure of the cervical spine. Halter traction to 10 pounds was placed. The arms were padded and adducted to the patients side making sure all pulses in the hands were present. Tape traction was undertaken on the shoulders to give us better radiographic exposure of the distal cervical spine. A gel-pad was placed under the occiput and 5 degrees of extension was placed on the neck without adverse effects to the patient. The anterior neck was prepped and draped. Pre-operative antibiotics were given 30 minutes prior to the start of the procedure. A c-arm fluoroscope was used to tori out the incision site. At this time, a time out was taken per usual protocol. Next an inscison was made through the skin with a 15 blade scalpel through the subcutaneous tissue down to the platysma. Self-retainers were placed. The platysma was incised along the longitudinal border with a Metzenbaum scissors. Blunt dissection was made through the deep cervical and pre-tracheal fascia taking care to protect the carotid sheath laterally and the Trachea/esophagus medially. The dissection was carried down to the prevertebral fascia. Any crossing vessels were ligated using a vascular clip or coagulated with a bovie. An esophageal retractor was next used to retract the trachea/esophagus and a bent [address] through the anterior annulus of the cervical disk and a lateral C-arm fluoroscopic image was taken to confirm that we were at the correct level. Next, bovie electrocautery was used to expose the bones of cervical 4,5,6, and 7 and bipolar electrocuatery was used to lift up the Longus Colli and Capitus muscles. Black-Belt Self Retainers were used to retract the longus colli and capitus muscles bilaterally as well as the trachea/esophagus to the right and the carotid sheath to the left. Smooth thin self raining retractors were placed proximally and distally and a needle was placed again in the anterior annulus of the disk and an image taken to confirm the correct level. At this point, an 11 blade scalpel incised the anterior annulus of the first of the 3 levels. Next, straight and curved curettes removed the remainder of the disks all the way down to the posterior longitudinal ligament. Carefully, a Kerison number one rongeur inscised the posterior longitudinal ligament at the lateral end of the cervical 4/5 an 5/6 and 6/7 disks and using a micro, blunt tip nerve hook to separate the posterior longitudinal ligament from the dura, alternating 1 mm and 2 mm Kerison rongeurs removed the posterior longitudinal ligament. Next, Kerison 1mm and 2 mm rongeurs were alternated to get under the uncinate processes and undercut them to perform foraminotomies and factectomies at these levels to decompress the central canal and the cervical 5,6 and 7 nerve roots respectively. Increasing size graft trials were used starting at a 5 mm thick size until the proper tension in the disk space and height rastafarian obtained. Next we placed the free standing inter body devices at dunlap of the 3 levels respectively. The sizes were tailored to make sure proper tension was restored in the ligaments without over tensioning. Satisfactory placement was confirmed in the AP and lateral views using a C-arm fluoroscope. Copious irrigation of the wound with sterile saline and all bleeding was controlled before closure initiated. At this point, a 10 Ecu[place]orean round Ram[address] Drain was place deep to the Platysma muscle and the Platysma was approximated with one interrupted 0-Vicryl suture. The subcutaneous tissue was closed with interrupted 2-0 vicryl sutures and the skin was closed with estelita. Sterile dressings were placed and a cervical collar placed, the patient extubated, transferred to the stretcher and taken to the Recovery Room in unremarkable condition. After surgery, in Pacu, a [place]-J equivalent cervical collar and external bone stimulator placed. Other Notes: Condition Stable Disposition Still a Patient REILLY SOUSA MD Oct 14, 2024 21:02
[2024-10-14] MEDS: THROAT LOZENGES(CEPASTAT) MT PRN (21:44)
[2024-10-15 01:44] VITALS: BP 139/76; PULSE 74; RESP 20; TEMP 98; O2SAT 95
[2024-10-15 04:45] VITALS: BP 138/75; PULSE 68; RESP 17; TEMP 98; O2SAT 90
--- NOTE | 2024-10-15 07:48 | DVHDS2 ---
ASSESSMENT ASSESSMENT Hospital Course Pat seen and admitted for elective spine surgery Assessment cervical spinal stenosis Problems: (1) Muscle spasms of neck Assessments: improved with medication and light activity (2) Postoperative pain after spinal surgery Assessments: controlled well with current medications VALENTINA REYES NP Oct 15, 2024 07:48
[2024-10-15 08:00] VITALS: PULSE 90; PULSE 92; RESP 15; O2SAT 96
[2024-10-15 08:07] VITALS: BP 142/81; PULSE 92; RESP 15; TEMP 98.4; O2SAT 96
[2024-10-15] MEDS ORDERED: CYCL-611 PO ×2 (11:30)
[2024-10-15] MEDS ORDERED: HYDR-4798 PO ×2 (11:30)
[2024-10-15] MEDS ORDERED: DOCU-265 PO ×2 (11:30)
--- NOTE | 2024-10-15 11:34 | DVHDS2 ---
Discharge Summary Date of Admission Oct 13, 2024 at 13:59 Date of Discharge: Oct 15, 2024 Admitting Diagnosis Cervical stenosis Wounds: Left anterior neck well approximated edges with estelita, minimal drainage from drain site. No swelling, no ecchymosis, no drainage, patient is speaking in handling oral secretions without difficulty. Labs/Diagnostic Data: Laboratory Results Test 10/13/24 18:10 White Blood Count 8.8 10^3/uL (4.4-10.8) Red Blood Count 4.03 10^6/uL (4.0-5.20) Hemoglobin 13.7 g/dL (12.2-16.2) Hematocrit 41.0 % (36.0-46.0) Mean Corpuscular Volume 101.7 fL (80.0-100.0) Mean Corpuscular Hemoglobin 33.8 pg (28.0-32.0) Mean Corpuscular Hemoglobin Concent 33.3 g/dL (32.0-36.0) Red Cell Distribution Width 14.2 % (11.8-14.3) Platelet Count 215 10^3/uL (140-450) Mean Platelet Volume 9.4 fL (6.9-10.8) Neutrophils (%) (Auto) 89.4 % (37.0-80.0) Lymphocytes (%) (Auto) 8.9 % (10.0-50.0) Monocytes (%) (Auto) 0.7 % (0.0-12.0) Eosinophils (%) (Auto) 0.0 % (0.0-7.0) Basophils (%) (Auto) 1.0 % (0.0-2.0) Neutrophils # (Auto) 7.8 10 ^3/uL (1.6-8.6) Lymphocytes # (Auto) 0.8 10 ^3/uL (0.4-5.4) Monocytes # (Auto) 0.1 10 ^3/uL (0-1.3) Eosinophils # (Auto) 0 10 ^3/uL (0-0.8) Basophils # (Auto) 0.1 10 ^3/uL (0-0.2) Nucleated Red Blood Cells 0.0 % Platelet Estimate Adequate Macrocytosis Slight Sodium Level 141 mmol/L (136-145) Potassium Level 3.7 mmol/L (3.5-5.1) Chloride Level 106 mmol/L (98-107) Carbon Dioxide Level 24 mmol/L (20-31) Anion Gap 11 (5-15) Blood Urea Nitrogen 8 mg/dL (9-23) Creatinine 0.89 mg/dL (0.550-1.02) Glomerular Filtration Rate Calc 77 mL/min (>90) BUN/Creatinine Ratio 9.0 (10.0-20.0) Serum Glucose 124 mg/dL (74-106) Calcium Level 9.8 mg/dL (8.7-10.4) Other Laboratory Tests 10/13/24 18:10 Brief Hx & Hospital Course: The patient arrived for a elective spine surgery with Dr. MICHAEL. Surgery went as planned with no complications. After a short stay in the PACU patient was admitted to the hospital for postoperative care and pain management over the course of 2 postoperative days the patient was able to tolerate a diet, ambulate independently, the pain has been managed with oral analgesics. The surgical site is well-approximated with sutures, some residual drainage continues from drain insertion sites after removal, however it is manageable with daily wound care and dressing changes. Some improvement to preoperative symptoms of extremities, strength and motion. There is new post operative pain that is localized to the surgical site. The patient will follow-up with Dr. Michael for wound check and suture check or staple removal. You may shower and let the water run over your neck wound however you must pat it dry with sterile 4x4s gauze. Please do not use regular household towels. Keep your incision covered when you are out of your house or when you are wearing clothing that rub on your incision. He will also do not want to have a seatbelt rubbing on your incision. If you are at home and you have clothing that does not contact your incision you may leave it open to air. You may have some residual drainage from the drain site for the next 2-3 days which is normal it should be a very light pink or tali color fluid. If it changes or becomes bright red please call 911. Operations or Procedures Procedure: Cervical 4 to 5 anterior cervical discectomy with Cervical 4-5 foraminotomies and facetectomies to decompression the spinal canal and Cervical 5 nerve roots Cervical 5 to 6 anterior cervical discectomy with Cervical 5/6 foraminotomies and facetectomies to decompression the spinal canal and Cervical 6 nerve roots Cervical 6 to 7 anterior cervical discectomy with Cervical 6/7 foraminotomies and facetectomies to decompression the spinal canal and Cervical 7 nerve roots Cervical 4-7 anterior cervical Fusion Cervical 4-7 anterior cervical instrumentation with freestanding cages Cervical 4-5 placement of allograft prosthetic device Cervical 5-6 placement of allograft prosthetic device Cervical 6-7 placement of allograft prosthetic device Condition at Discharge: Good Final Diagnosis/Problems List Acute postoperative pain status post spine surgery, muscle spasms of the neck, cervical stenosis-resolved Problems List: (1) Cervical stenosis of spinal canal Status: Resolved (2) Muscle spasms of neck Status: Acute (3) Postoperative pain after spinal surgery Status: Acute (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 He may advance when that pain is resolved Activity: Light activity Activity comment: Please move your neck through the normal range of motion without any excessive stretching or bending or twisting. You movement should be comfortable in slowly improve over time. Follow Up/Referral: Call [phone] for a appointment [id number] [place] [address], [address], [place] [address] Medications: Medication prescriptions have been sent to patient's pharmacy of the preference New Medications: Cyclobenzaprine HCl (Cyclobenzaprine Hydrochlo) 10 Mg Tab 10 MG PO TID for 30 Days, #90 TAB Docusate Sodium (Docusate Sodium) 100 Mg Cap 100 MG PO BID for 30 Days, #90 CAP Hydrocodone-Acetaminophen (Hydrocodone Bitartrate/AC 10-325 mg) 1 Tab Tab 1 TAB PO Q6HP PRN for 10 Days, #40 TAB Continued Medications: Amlodipine Besylate (Amlodipine Besylate) 10 Mg Tab 10 MG PO DAILY, TAB Cyclobenzaprine HCl (Cyclobenzaprine Hydrochlo) 10 Mg Tab 10 MG PO BID, #14 TAB Diclofenac Sodium (Diclofenac Sodium Dr) 75 Mg Tab 75 MG PO, TAB Estrogens, Conjugated (Premarin Tablet) 0.3 Mg Tb 0.9 MG PO, TAB Hydrochlorothiazide (Hydrochlorothiazide) 25 Mg Tab 25 MG PO DAILY, TAB Lisinopril (Lisinopril) 20 Mg Tab 1 TAB PO DAILY, #30 TAB 5 Refills Metoprolol Succinate (Metoprolol Succinate Er) 25 Mg Tab 25 MG PO DAILY, TAB Oxycodone W/ Acetaminophen (Apap/Oxycodone) 1 Tab Tab 1 TAB PO, TAB 25 Discharge Statement: "Patient was advised to return to the ER or call 911 if any headaches, dizziness, shortness of breath, chest pain, abdominal pain, bleeding, fevers, or worsening of medical condition. Patient was counseled about treatment plan, medications, possible side effects, patientverbalized understanding. All questions were answered to the best of my ability. This discharge took greater then 30 minutes in planning, reviewing documentation, counseling the patient, and discussing with other team members." ASSESSMENT ASSESSMENT Hospital Course The patient arrived for a elective spine surgery with Dr. MICHAEL. Surgery went as planned with no complications. After a short stay in the PACU patient was admitted to the hospital for postoperative care and pain management over the course of 2 postoperative days the patient was able to tolerate a diet, ambulate independently, the pain has been managed with oral analgesics. The surgical site is well-approximated with sutures, some residual drainage continues from drain insertion sites after removal, however it is manageable with daily wound care and dressing changes. Some improvement to preoperative symptoms of extremities, strength and motion. There is new post operative pain that is localized to the surgical site. The patient will follow-up with Dr. Michael for wound check and suture check or staple removal. Assessment Acute postoperative pain status post spine surgery, muscle spasms of the neck, cervical stenosis-resolved Problems: (1) Muscle spasms of neck Assessments: improved with medication and light activity (2) Postoperative pain after spinal surgery Assessments: controlled well with current medications VALENTINA REYES NP Oct 15, 2024 11:34
[2024-10-15 11:58] VITALS: BP 143/97; PULSE 103; RESP 17; TEMP 98.8; O2SAT 95
[2024-10-15 13:05] VITALS: BP 148/97; PULSE 103; RESP 17; TEMP 98.8; O2SAT 95
== END 2024-10-15 14:37 | disposition home health service (06) | DRG 473 ==
LOC: SUR 08:21 → TELE 13:59 → TELE-WESTW 15:57
PROVIDERS: ADMIT Orthopaedic Surgery; ATTEND Orthopaedic Surgery
PROC: 0RG20A0 Fusion of 2 or more Cervical Vertebral Joints with Interbody Fusion Device, Anterior Approach, Anterior Column, Open Approach (ICD-10-PCS; principal; 2024-10-14)
PROC: 01N10ZZ Release Cervical Nerve, Open Approach (ICD-10-PCS; 2024-10-14)
PROC: 0RB30ZZ Excision of Cervical Vertebral Disc, Open Approach (ICD-10-PCS; 2024-10-14)
DX: M48.02 Spinal stenosis, cervical region (principal); G89.18 Other acute postprocedural pain; K59.9 Functional intestinal disorder, unspecified; I10 Essential (primary) hypertension; M62.838 Other muscle spasm; T40.605A Adverse effect of unspecified narcotics, initial encounter; G89.29 Other chronic pain; M54.9 Dorsalgia, unspecified; D75.89 Other specified diseases of blood and blood-forming organs; Z85.43 Personal history of malignant neoplasm of ovary; Z90.710 Acquired absence of both cervix and uterus; Y92.89 Other specified places as the place of occurrence of the external cause; Z90.722 Acquired absence of ovaries, bilateral; Z88.5 Allergy status to narcotic agent; Z88.8 Allergy status to other drugs, medicaments and biological substances; Z79.899 Other long term (current) drug therapy
CPT/HCPCS: 36415; 72040; 76000; 80048; 85025; 86850; 86900; 86901; 97110; 97116; 97163; G0378; J0131; J1100; J2003; J2405; J2704; J7042

== ENCOUNTER 2024-10-22 15:50 | Inpatient (IN) | payer BC, MEDICAID ==
[~2024-10-22] VITALS: Ht 175.3 cm; Wt 118.6 kg
[~2024-10-22 15:50] MED LIST changes: +DOCU-265 PO; +HYDR-4798 PO
--- NOTE | 2024-10-22 16:07 | ED.PDOC ---
HPI Comments 54 y/o F ANABELLE, with PMHX of NV, HTN, CHF, HLD, and ovarian cancer presents to the ED for CC of chest pain. Patient states, that she has been experiencing substernal chest pain that radiates to her left arm since last night (10/21/24). Patient comments on, symptoms worsening x30 min ago with new symptoms of left arm numbness, nausea, and shortness of breath. Patient endorses on, similar symptoms in the past with previous myocardial infarctions. Per EMS, patient was given Aspirin in route to ED. Patient denies tobacco usage, drinks occasionally ETOH, and smokes marijuana. Patient denies fever, chills, body-aches, or N/V/D. No other symptoms or modifying factors at this time. Time Seen by MD: 15:50 Primary Care Provider: FRITZ Reviewed Notes: Nurses Notes, Specimen Preparation Assistant Notes, Medications, Allergies Allergies: Coded Allergies: Gabapentin (Unverified Allergy, Severe, anaphylaxis, 04/09/24) Morphine (Verified Allergy, Unknown, 03/15/17) Home Meds Active Scripts Docusate Sodium (Docusate Sodium) 100 Mg Cap, 100 MG PO BID for 30 Days, #90 CAP Prov:VALENTINA REYES TABLEAU ARCHITECT 10/15/24 Hydrocodone-Acetaminophen (Hydrocodone Bitartrate/AC 10-325 mg) 1 Tab Tab, 1 TAB PO Q6HP PRN for 10 Days, #40 TAB Prov:VALENTINA REYES TABLEAU ARCHITECT 10/15/24 Cyclobenzaprine HCl (Cyclobenzaprine Hydrochlo) 10 Mg Tab, 10 MG PO TID for 30 Days, #90 TAB Prov:VALENTINA REYES TABLEAU ARCHITECT 10/15/24 Cyclobenzaprine HCl (Cyclobenzaprine Hydrochlo) 10 Mg Tab, 10 MG PO BID, #14 TAB Prov:BEE LEE MD 04/21/24 Reported Medications Lisinopril (Lisinopril) 20 Mg Tab, 1 TAB PO DAILY, #30 TAB 5 Refills 04/14/24 Diclofenac Sodium (Diclofenac Sodium Dr) 75 Mg Tab, 75 MG PO, TAB 04/09/24 Hydrochlorothiazide (Hydrochlorothiazide) 25 Mg Tab, 25 MG PO DAILY, TAB 04/09/24 Oxycodone W/ Acetaminophen (Apap/Oxycodone) 1 Tab Tab, 1 TAB PO, TAB 04/09/24 Estrogens, Conjugated (PREMARIN TABLET) 0.3 Mg Tb, 0.9 MG PO, TAB 04/09/24 Metoprolol Succinate (Metoprolol Succinate Er) 25 Mg Tab, 25 MG PO DAILY, TAB 04/09/24 Amlodipine Besylate (Amlodipine Besylate) 10 Mg Tab, 10 MG PO DAILY, TAB 04/09/24 Information Source: Patient Mode of Arrival: EMS Severity: Moderate Timing: Hours Duration: Since onset Prehospital treatment: None Location: Substernal Radiation: Arm (L) Quality: Pressure Onset: At Rest Cardiac Risk Factors: HTN PE Risk Factors: None History of: NV, Aspirin Modifying Factors: Nothing Associated Signs and Symptoms: None Past Medical History PAST MEDICAL HISTORY: CVA, HTN, NV, PE Surgical History: Hysterectomy LINUX SYSTEM ENGINEER History: Denies all LINUX SYSTEM ENGINEER Hx Family History Family History: No family hx of Heart juany, No family hx of HTN Social History Smoker: Non-Smoker Alcohol: Denies ETOH Use Drugs: Denies Drug Use Lives In: Home Constitutional: denies: chills, diaphoresis, fatigue, fever, malaise, sweats, weakness, others EENTM: denies: blurred vision, double vision, ear bleeding, ear discharge, ear drainage, ear pain, ear ringing, eye pain, eye redness, hearing loss, mouth pain, mouth swelling, nasal discharge, nose bleeding, nose congestion, nose pain, photophobia, tearing, throat pain, throat swelling, voice changes, others Respiratory: reports: shortness of breath; denies: cough, hemoptysis, orthopnea, SOB at rest, SOB with excertion, stridor, wheezing, others Cardiovascular: reports: chest pain; denies: dizzy spells, diaphoresis, Dyspnea on exertion, edema, irregular heart beat, left arm pain, lightheadedness, palpitations, PND, syncope, others Gastrointestinal: reports: nausea; denies: abdomen distended, abdominal pain, blood streaked bowels, constipated, diarrhea, dysphagia, difficulty swallowing, hematemesis, melena, poor appetite, poor fluid intake, rectal bleeding, rectal pain, vomiting, others Genitourinary: denies: abnormal vagina bleeding, burning, dyspareunia, dysuria, flank pain, frequency, hematuria, incontinence, pain, , vagina discharge, urgency, others Neurological: denies: dizziness, fainting, headache, left sided numbness, left sided weakness, numbness, paresthesia, pre-existing deficit, right sided numbn ess, right sided weakness, seizure, speech problems, tingling, tremors, weakness, others Musculoskeletal: denies: back pain, gout, joint pain, joint swelling, muscle pain, muscle stiffness, neck pain, others Integumetry: denies: bruises, change in color, change in hair/nails, dryness, laceration, lesions, lumps, rash, wounds, others Allergic/Immunocompromised: denies: Difficulty Healing, Frequent Infections, Hives, Itching, others Hematologic/Lymphatic: denies: anemia, blood clots, easy bleeding, easy bruising, swollen glands, others Endocrine: denies: excessive hunger, excessive sweating, excessive thirst, excessive urination, flushing, intolerance to cold, intolerance to heat, unexplained weight gain, unexplained weight loss, others Psychiatric: denies: anxiety, bipolar disorder, depression, hopeless, panic disorder, schizophrenia, sleepless, suicidal, others All Other Systems: Reviewed and Negative Physical Exam General Appearance: Moderate Distress HEENT: Normal ENT Inspection, Pharynx Normal, TMs Normal Neck: Full Range of Motion, Non-Tender, Normal, Normal Inspection Respiratory: Chest Non-Tender, Lungs Clear, No Accessory Muscle Use, No Respiratory Distress, Normal Breath Sounds Cardiovascular: No Edema, No JVD, No Murmur, No Gallop, Normal Peripheral Pulses, Regular Rate/Rhythm Breast Exam: Deferred Gastrointestinal: No Organomegaly, Non Tender, No Pulsatile Mass, Normal Bowel Sounds, Soft Genitalia: Deferred Pelvic: Deferred Rectal: Deferred Extremities: No calf tenderness, Normal capillary refill, Normal inspection, Normal range of motion, Non-tender, No pedal edema Musculoskeletal : Apperance: Normal Neurologic: Alert, seo marketing specialist II-XII nml as Tested, No Motor Deficits, Normal Affect, Normal Mood, No Sensory Deficits Cerebellar Function: Normal Reflexes: Normal Skin: Dry, Normal Color, Warm Lymphatic: No Adenopathy EKG EKG : Pulse Rate (adult): 89 [place]: Normal Cardiac Rhythm: NSR Hypertrophy: None ST: Normal Was a procedure done? Was a procedure done?: No CP Differential Dx Differential Diagnosis: Heart Failure, NV Differential Diagnosis: CHF, HTN Essential, HTN Accelerated Differential Diagnosis: Angina, Chest Wall Pain, Cholelithiasis, Costochondritis X-Ray, Labs, Meds, VS Vital Signs Date Time Temp Pulse Resp B/P (MAP) Pulse Ox O2 Delivery O2 Flow Rate FiO2 10/22/24 20:00 82 19 129/86 (100) 94 10/22/24 20:00 85 10/22/24 18:51 77 14 131/92 10/22/24 17:10 98.4 87 14 119/90 (100) 97 98.4 10/22/24 16:38 85 10/22/24 16:22 98.1 85 16 136/92 (107) 97 98.1 10/22/24 16:16 85 16 97 Room Air* 0 21 10/22/24 16:07 89 10/22/24 15:55 89 10/22/24 15:52 98.1 89 18 126/90 (102) 97 Lab Test 10/22/24 19:16 10/22/24 17:09 10/22/24 16:40 10/22/24 16:10 Range/Units D-Dimer, Quantitative Pending Troponin I High Sensitivity 6 7 6 </=34 ng/L Urine Color Light-yellow Yellow Urine Clarity Clear Clear Urine pH 6.5 5.0-9.0 Urine Specific Berry 1.022 1.001-1.035 Urine Protein Negative Negative Urine Ketones Negative Negative Urine Blood Negative Negative /uL Urine Nitrite Negative Negative Urine Bilirubin Negative Negative Urine Urobilinogen Normal Negative mg/dL Urine Leukocyte Esterase Negative Negative /uL Urine RBC 1 0 - 4 /hpf Urine Microscopic WBC < 1 0-5 /HPF Urine Squamous Epithelial Cells Few <5 /hpf Urine Bacteria None seen None Seen /hpf Urine Mucus Few None Seen Urine Glucose Normal Normal mg/dL White Blood Count 6.3 4.4-10.8 10^3/uL Red Blood Count 3.86 L 4.0-5.20 10^6/uL Hemoglobin 13.0 12.2-16.2 g/dL Hematocrit 38.5 36.0-46.0 % Mean Corpuscular Volume 99.7 80.0-100.0 fL Mean Corpuscular Hemoglobin 33.8 H 28.0-32.0 pg Mean Corpuscular Hemoglobin Concent 33.9 32.0-36.0 g/dL Red Cell Distribution Width 13.6 11.8-14.3 % Platelet Count 325 140-450 10^3/uL Mean Platelet Volume 8.7 6.9-10.8 fL Neutrophils (%) (Auto) 49.9 37.0-80.0 % Lymphocytes (%) (Auto) 41.8 10.0-50.0 % Monocytes (%) (Auto) 5.4 0.0-12.0 % Eosinophils (%) (Auto) 1.6 0.0-7.0 % Basophils (%) (Auto) 1.3 0.0-2.0 % Neutrophils # (Auto) 3.1 1.6-8.6 10 ^3/uL Lymphocytes # (Auto) 2.6 0.4-5.4 10 ^3/uL Monocytes # (Auto) 0.3 0-1.3 10 ^3/uL Eosinophils # (Auto) 0.1 0-0.8 10 ^3/uL Basophils # (Auto) 0.1 0-0.2 10 ^3/uL Nucleated Red Blood Cells 0.2 % Sodium Level 138 136-145 mmol/L Potassium Level 3.9 3.5-5.1 mmol/L Chloride Level 105 98-107 mmol/L Carbon Dioxide Level 23 20-31 mmol/L Anion Gap 10 5-15 Blood Urea Nitrogen 14 9-23 mg/dL Creatinine 0.89 0.550-1.02 mg/dL Glomerular Filtration Rate Calc 77 >90 mL/min BUN/Creatinine Ratio 15.7 10.0-20.0 Serum Glucose 98 74-106 mg/dL Calcium Level 10.0 8.7-10.4 mg/dL Current Medications Medications (Trade) Dose Ordered Sig/Bia Route Start Time Stop Time Status Last Admin Ondansetron HCl (Zofran) 4 mg ONCE ONCE IV 10/22/24 18:45 10/22/24 18:46 DC 10/22/24 18:50 Hydromorphone HCl (Dilaudid Injection) 1 mg ONCE ONCE IV 10/22/24 18:45 10/22/24 18:46 DC 10/22/24 18:51 IV Hep-Lock was established The patient was given Zofran 4 mg IV push for the nausea The patient was allergic to morphine so was given Dilaudid 1 mg IV push The CBC and chemistry panel are within normal limits The urine test is negative The troponin level x3 is negative The patient was being admitted at this time. The patient continues to have persistent chest pain The patient is a choice patient and will be dispositioned by the hospitalist Images Reviewed?: Images reviewed and evaluated by me Time of 1ST Reevaluation: 16:20 Reevaluation 1ST: Unchanged Patient Education/Counseling: Diagnosis, Treatment, Prognosis Family Education/Counseling: No Family Present Additional Information - I reviewed the following notes from patient's past medical encounters: 10/13/24 DX: Cervical spine stenosis - The following tests were ordered, and results were reviewed by me: TROPONIN X3, EKG X3 - Additional information was gathered from interviewing the following independent Historian: FAMILY, EMS - I discussed treatments and results with medical personnel and: (consultants, family): PATIENT Departure 1 Departure Time of Disposition: 21:18 Impression: Primary Impression: Acute coronary syndrome Disposition: ADMITTED INPATIENT Admit to: Tele Condition: Fair Critical Care Note Critical Care Time?: Yes (35 min-critical care time only) Stability Stability form required: Yes Unstable for transfer: Telemetry monitoring (Telemetry monitoring required), ED Physician Assesment (Clinical assesment) Heart Score Heart Score: Heart Score Response (Comments) Value History Moderate Suspicious 1 EKG Repolarization Disturb 1 Age 45-64 1 Risk Factors >3 or Hx ASHD 2 Troponin Normal limit 0 Total 5 I personally scribed for FIGUEROA CORNELL MD ([email or web address]) on 10/22/24 at 16:07. Electronically submitted by Kathrine Sam ([email or web address]). I personally scribed for FIGUEROA CORNELL MD ([email or web address]) on 10/22/24 at 16:26. Electronically submitted by Kathrine Sam ([email or web address]). FIGUEROA CORNELL MD Oct 22, 2024 16:07
[2024-10-22 16:16] VITALS: PULSE 85; RESP 16; O2SAT 97
[2024-10-22 16:59] LABS: Basophils # (auto) 0.1 10 ^3/uL (0-0.2); Basophils % (auto) 1.3 % (0.0-2.0); Eosinophils # (auto) 0.1 10 ^3/uL (0-0.8); Eosinophils % (auto) 1.6 % (0.0-7.0); Hematocrit 38.5 % (36.0-46.0); Lymphocytes # (auto) 2.6 10 ^3/uL (0.4-5.4); Lymphocytes % (auto) 41.8 % (10.0-50.0); Mean Corpuscular Hemoglobin 33.8 pg (28.0-32.0); Mean Corpuscular Hgb Conc. 33.9 g/dL (32.0-36.0); Mean Corpuscular Volume 99.7 fL (80.0-100.0); Monocytes # (auto) 0.3 10 ^3/uL (0-1.3); Monocytes % (auto) 5.4 % (0.0-12.0); Neutrophils # (auto) 3.1 10 ^3/uL (1.6-8.6); Neutrophils % (auto) 49.9 % (37.0-80.0); Nucleated Red Blood Cells % 0.2 %; Platelet Count (auto) 325 10^3/uL (140-450); Red Blood Cells 3.86 10^6/uL (4.0-5.20); Red Cell Distribution Width 13.6 % (11.8-14.3); White Blood Cell 6.3 10^3/uL (4.4-10.8)
[2024-10-22 17:15] LABS: Urine Bacteria None Seen /hpf (None Seen)
[2024-10-22 17:26] LABS: Chloride 105 mmol/L (98-107); Potassium 3.9 mmol/L (3.5-5.1); Sodium 138 mmol/L (136-145)
[2024-10-22 17:27] LABS: Anion Gap 10 (5-15); Carbon Dioxide 23 mmol/L (20-31)
[2024-10-22 17:32] LABS: BUN/Creatinine Ratio 15.7 (10.0-20.0); Blood Urea Nitrogen 14 mg/dL (9-23); Glucose 98 mg/dL (74-106)
--- NOTE | 2024-10-22 17:48 | ECG ---
[facility] Test Date: 2024-10-22 Test Time: 15:55:06 Pat Name: SUSI COLLINS Department: ER Room: [address] [place] [address] Gender: F Guest Relations Associate: RADHA : 1970 Requested By: FIGUEROA CORNELL Order Number: [id number] Reading MD: Moi Maurice Measurements Intervals [place] Rate: 89 P: 51 FL: 165 QRS: 21 QRSD: 98 T: -41 QT: 394 QTc: 480 Interpretive Statements Sinus rhythm Abnormal R-wave progression, early transition Abnormal T, consider ischemia, anterior leads Electronically Signed On 10-23-2024 8:19:37 PST by Moi Maurice Please click the below link to view image of tracing.
--- NOTE | 2024-10-22 17:48 | ECG ---
[facility] Test Date: 2024-10-22 Test Time: 16:38:21 Pat Name: SUSI COLLINS Department: ER Room: [address] [place] [address] Gender: F Cash Specialist: RADHA : 1970 Requested By: FIGUEROA CORNELL Order Number: [id number] Reading MD: Moi Maurice Measurements Intervals [place] Rate: 85 P: 50 OR: 164 QRS: 19 QRSD: 99 T: -64 QT: 381 QTc: 453 Interpretive Statements Sinus rhythm Abnormal R-wave progression, early transition Abnormal T, consider ischemia, diffuse leads Electronically Signed On 10-23-2024 8:19:45 PST by Moi Maurice Please click the below link to view image of tracing.
--- NOTE | 2024-10-22 17:51 | DVH ---
CHEST RADIOGRAPH Indication: cp Technique: Single frontal view of the chest was obtained Comparison: None FINDINGS: Lines and Tubes: None Lungs: No focal consolidation. Pleura: No effusion. No pneumothorax. Cardiomediastinal contours: Unremarkable Bones: No acute osseous abnormality. IMPRESSION: No acute cardiopulmonary disease.
[2024-10-22 18:16] LABS: Urine Blood Negative /uL (Negative); Urine Clarity Clear (Clear); Urine Color Light-Yellow (Yellow); Urine Mucus FEW (None Seen); Urine Protein, UAD Negative (Negative); Urine Specific Gravity 1.022 (1.001-1.035); Urine Squamous Epithelial Cell FEW /hpf (<5); Urine Urobilinogen Normal (Negative); Urine WBC < 1 /HPF (0-5); Urine pH 6.5 (5.0-9.0)
[2024-10-22] MEDS ORDERED: MORPHINE SULFATE 4 MG/ML SYR/VIAL IV ONE (18:45)
[2024-10-22] MEDS: ONDANSETRON HCL 4 MG/2 ML VIAL IV ONE (18:50)
[2024-10-22] MEDS: HYDROmorphone HCL 2 MG/ML VL/or syr IV ONE (18:51)
[2024-10-22 19:50] VITALS: PULSE 84; RESP 15; O2SAT 96
[2024-10-22] MEDS ORDERED: ACETAMINOPHEN 325 MG TAB PO PRN (22:15)
[2024-10-22] MEDS ORDERED: ONDANSETRON HCL 4 MG/2 ML VIAL IV PRN (22:15)
[2024-10-22] MEDS ORDERED: DOCUSATE SOD 100 MG CAP PO PRN (22:15)
[2024-10-22] MEDS ORDERED: MORPHINE SULFATE INJ 2 MG/ml SYRG IV PRN (22:15)
[2024-10-22] MEDS: IOHEXOL 350 MG/ML 100ML IJ ONE (22:46)
--- NOTE | 2024-10-22 23:43 | DVH ---
CTA Chest with intravenous contrast INDICATION: Elevated d dimer COMPARISON: CT chest 04/20/24 TECHNIQUE: Multidetector spiral CTA of the chest was performed of the chest with intravenous contrast . PULMONARY ANGIOGRAPHY PROTOCOL was utilized using a bolus-tracking technique centered on the main p ulmonary artery. Axial, coronal and sagittal multiplanar and MIP reformats were performed. Radiation Dose : 1. Chest: CTDI volume is mGy. Dose-length product is mGy*cm The dose indicators for CT are the volume Computed Tomography (CT) Dose Index (CTDIvol) and the Dose Length Product (DLP), and are measured in units of mGy and mGy-cm, respectively. These indicators are not patient dose, but values generated from the CT scanner acquisition factors. The report includes radiation exposure data for exposures received during this examination. Findings: Pulmonary artery: No evidence of pulmonary embolism. Lungs: No focal consolidation, pleural effusion or pneumothorax. Mild subsegmental atelectasis at the lung bases. Heart/Vascular Structures: Normal heart size. No pericardial effusion. Thoracic aorta appears unremar kable. Lymph Nodes: No adenopathy Pleura: No pleural effusion or pneumothorax. Musculoskeletal: No acute osseous abnormality. Soft tissues: Unremarkable. Visualized Upper abdomen: No abnormal demonstrated. IMPRESSION: 1. No pulmonary embolism. 2. No acute thoracic finding.
[2024-10-22] MEDS: OXYCODONE W/ ACETAMINOPHEN 5/325MG TABLET PO PRN (23:46)
--- NOTE | 2024-10-22 23:48 | DVH ---
Bilateral lower extremity venous duplex Clinical History: elevated d dimer Comparison: None Technique: Duplex Doppler evaluation of the deep venous systems of both lower extremities from the common femora l veins to the popliteal veins including color Doppler and spectral/pulsed waveform analysis was perf ormed. Findings: RIGHT SIDE: The common femoral vein demonstrates appropriate compressibility and waveform variability. There is compressibility/patency of the great saphenous vein at the proximal thigh. The femoral vein demonstrates appropriate compressibility and waveform variability. The deep femoral vein demonstrates appropriate compressibility and waveform variability. The popliteal vein demonstrates appropriate compressibility and waveform variability. LEFT SIDE: The common femoral vein demonstrates appropriate compressibility and waveform variability. There is compressibility/patency of the great saphenous vein at the proximal thigh. The femoral vein demonstrates appropriate compressibility and waveform variability. The deep femoral vein demonstrates appropriate compressibility and waveform variability. The popliteal vein demonstrates appropriate compressibility and waveform variability. Impression: No right or left femoropopliteal venous thrombosis.
[2024-10-23] VITALS (9 sets, daily range): BP systolic 119–146; BP diastolic 79–98; PULSE 74–89; RESP 16–19; TEMP 97.5–98; O2SAT 0–98
--- NOTE | 2024-10-23 01:30 | DVH ---
Bilateral Upper Extremity Venous Duplex Clinical History: elvated d dimer Comparison: None Findings: Duplex Doppler evaluation of the venous systems of the right and left lower neck and upper extremitie s including color Doppler and spectral/pulsed waveform analysis was performed. RIGHT SIDE: The internal jugular vein demonstrates appropriate compressibility and waveform variability. The subclavian vein is patent on color Doppler evaluation without intraluminal thrombus and demonstra humphrey waveform variability. The visualized portion of the brachiocephalic vein is patent on color Doppler evaluation without intr aluminal thrombus and demonstrates waveform variability. The axillary vein demonstrates appropriate compressibility and waveform variability. The brachial vein demonstrate appropriate compressibility and patency on Doppler evaluation. The basilic vein demonstrates appropriate compressibility and patency on Doppler evaluation. The cephalic vein demonstrates appropriate compressibility and patency on Doppler evaluation. LEFT SIDE: The internal jugular vein demonstrates appropriate compressibility and waveform variability. The subclavian vein is patent on color Doppler evaluation without intraluminal thrombus and demonstra humphrey waveform variability. The visualized portion of the brachiocephalic vein is patent on color Doppler evaluation without intr aluminal thrombus and demonstrates waveform variability. The axillary vein demonstrates appropriate compressibility and waveform variability. The brachial vein is not well visualized due to presence of PICC line. The basilic vein demonstrates appropriate compressibility and patency on Doppler evaluation. The cephalic vein demonstrates appropriate compressibility and patency on Doppler evaluation. Impression: No venous thrombus identified in right or left upper extremity vessels evaluated above.
--- NOTE | 2024-10-23 01:57 | DVHHP2 ---
ANABELA BAI CREDIT REPRESENTATIVE 10/23/24 0157: History of Present Illness Reason for Visit: chest pain History of Present Illness 54-year-old female past medical history of hypertension, hyperlipidemia, and my, DVT presents With complaints of substernal chest pain radiating to the left arm. Symptoms worsen On day of arrival. Patient endorsed Short of breath, diaphoresis,And nausea. Patient recently had elective cervical spine surgery On October 15, 2024. At this time patient denies fevers, chills,Palpitations, nausea, vomiting,Diarrhea, abdominal pain. Cardiovascular: HTN, VA, hyperipidemia Past Surgical History C spine Surgery Smoke: 1 pack per day ALCOHOL: occassional Drugs: Marijuana Lives: with Family Review of Systems Constitutional: No: Fever, Chills, Sweats, Weakness, Malaise, Other Eyes: No: Pain, Vision change, Conjunctivae inflammation, Eyelid inflammation, Other, Redness ENT: No: Ear pain, Ear discharge, Nose pain, Nose discharge, Nose congestion, Mouth pain, Mouth swelling, Throat pain, Throat swelling, Other Respiratory: Shortness of breath; No: Cough, Dry, SOB with excertion, Wheezing, Hemoptysis, Pleuritic Pain, Sputum, Wheezing, Other Cardiovascular: Chest Pain; No: Palpitations, Orthopnea, Paroxysmal Noc. Dyspnea, Edema, Lt Headedness, Other Gastrointestinal: Nausea; No: Vomiting, Abdominal Pain, Diarrhea, Constipation, Melena, Hematochezia, Other Genitourinary: No Dysuria, No Frequency, No Incontinence, No Hematuria, No Retention, No Other Musculoskeletal: No: other, neck pain, shoulder pain, arm pain, back pain, hand pain, leg pain, foot pain Skin: No: Rash, Lesions, Jaundice, Bruising, Other Neurological: No: Weakness, Numbness, Incoordination, Change in speech, Confusion, Seizures, Other Allergies: Coded Allergies: Gabapentin (Unverified Allergy, Severe, anaphylaxis, 04/09/24) Morphine (Verified Allergy, Unknown, 03/15/17) Medications Current Medications Medications Dose Ordered Sig/Bia Route Start Time Stop Time Status Last Admin Dose Admin Docusate Sodium 100 mg BIDPRN PRN PO 10/22/24 22:15 Acetaminophen 650 mg Q6HP PRN PO 10/22/24 22:15 Ondansetron HCl 4 mg Q4HP PRN IV 10/22/24 22:15 Enoxaparin Sodium 40 mg DAILY SC 10/23/24 10:00 Nitroglycerin 0.4 mg Q5MINP PRN SL 10/22/24 22:15 Morphine Sulfate 2 mg Q30M PRN IV 10/22/24 22:15 UNV Amlodipine Besylate 10 mg DAILY PO 10/23/24 10:00 Oxycodone/ Acetaminophen 1 tab Q6HP PRN PO 10/22/24 22:15 10/22/24 23:46 1 TAB Exam Vital Signs Vital Signs Date Time Temp Pulse Resp B/P (MAP) Pulse Ox O2 Delivery O2 Flow Rate FiO2 10/23/24 00:25 97.5 76 18 146/96 (113) 95 97.5 10/22/24 19:50 Room Air* 0 21 General Appearance: Alert, Oriented X3, Cooperative, mild distress HEENT: Atraumatic, PERRLA, EOMI Respiratory: Clear to auscultation, Normal air movement Cardiovascular: Regular rate, Normal S1, Normal S2 Abdominal: Normal bowel sounds, Soft, No tenderness Extremities: No cyanosis, No edema Skin: No rashes (Incision on left neck while approximated No erythema no sign of infection estelita intact.) Neuro: Normal speech, Strength at 5/5 X4 ext Psych/Mental Status: Mental status NL, Mood NL Labs/Xrays Labs Test 10/22/24 19:16 10/22/24 16:40 10/22/24 16:10 Range/Units D-Dimer, Quantitative 2.47 H 0.0-0.49 mg/L FEU Troponin I High Sensitivity 6 </=34 ng/L Urine Color Light-yellow Yellow Urine Clarity Clear Clear Urine pH 6.5 5.0-9.0 Urine Specific [place] 1.022 1.001-1.035 Urine Protein Negative Negative Urine Ketones Negative Negative Urine Blood Negative Negative /uL Urine Nitrite Negative Negative Urine Bilirubin Negative Negative Urine Urobilinogen Normal Negative mg/dL Urine Leukocyte Esterase Negative Negative /uL Urine RBC 1 0 - 4 /hpf Urine Microscopic WBC < 1 0-5 /HPF Urine Squamous Epithelial Cells Few <5 /hpf Urine Bacteria None seen None Seen /hpf Urine Mucus Few None Seen Urine Glucose Normal Normal mg/dL White Blood Count 6.3 4.4-10.8 10^3/uL Red Blood Count 3.86 L 4.0-5.20 10^6/uL Hemoglobin 13.0 12.2-16.2 g/dL Hematocrit 38.5 36.0-46.0 % Mean Corpuscular Volume 99.7 80.0-100.0 fL Mean Corpuscular Hemoglobin 33.8 H 28.0-32.0 pg Mean Corpuscular Hemoglobin Concent 33.9 32.0-36.0 g/dL Red Cell Distribution Width 13.6 11.8-14.3 % Platelet Count 325 140-450 10^3/uL Mean Platelet Volume 8.7 6.9-10.8 fL Neutrophils (%) (Auto) 49.9 37.0-80.0 % Lymphocytes (%) (Auto) 41.8 10.0-50.0 % Monocytes (%) (Auto) 5.4 0.0-12.0 % Eosinophils (%) (Auto) 1.6 0.0-7.0 % Basophils (%) (Auto) 1.3 0.0-2.0 % Neutrophils # (Auto) 3.1 1.6-8.6 10 ^3/uL Lymphocytes # (Auto) 2.6 0.4-5.4 10 ^3/uL Monocytes # (Auto) 0.3 0-1.3 10 ^3/uL Eosinophils # (Auto) 0.1 0-0.8 10 ^3/uL Basophils # (Auto) 0.1 0-0.2 10 ^3/uL Nucleated Red Blood Cells 0.2 % Sodium Level 138 136-145 mmol/L Potassium Level 3.9 3.5-5.1 mmol/L Chloride Level 105 98-107 mmol/L Carbon Dioxide Level 23 20-31 mmol/L Anion Gap 10 5-15 Blood Urea Nitrogen 14 9-23 mg/dL Creatinine 0.89 0.550-1.02 mg/dL Glomerular Filtration Rate Calc 77 >90 mL/min BUN/Creatinine Ratio 15.7 10.0-20.0 Serum Glucose 98 74-106 mg/dL Calcium Level 10.0 8.7-10.4 mg/dL Assessment/Plan Assessment/Plan Chest pain Elevated D dimer Hypertension S/P cervical spine surgery Plan Admit telemetry Cardiology consult. Echocardiogram. Continue home medication. As needed anti- hypertensive for optimal BP management. CTA chest r/o PE. Bilateral upper and lower extremity Venous Dopler to r/o DVT. GI ppx pepcid / dvt ppx lovenox. Plan discussed with: Patient My Orders Orders - ANABELA BAI NP Procedure Category Date Status Time Admit ADMIT 10/22/24 Transmitted 22:09 Code Status CODE 10/22/24 Transmitted 22:09 Vital Signs LUIS ANTONIO 10/22/24 In Process 22:09 Review Orders With LUIS ANTONIO 10/22/24 In Process Adm. 22:09 Bedside Commode LUIS ANTONIO 10/22/24 In Process 22:09 Consistent DIET 10/23/24 Transmitted Carb(Ccho)Diabetes Breakfast Oxygen By Face Mask RT 10/22/24 Transmitted 22:09 Docusate Sodium PHA 10/22/24 In Process Capsule (Colace 22:15 Acetaminophen Tablet PHA 10/22/24 In Process (Tylenol Tablet) 22:15 Notify Of Changes LUIS ANTONIO 10/22/24 In Process From Base 22:09 Advance Directive LUIS ANTONIO 10/22/24 In Process 22:09 Echo 2d Mode Cardiac US 10/22/24 Logged DOP 22:09 Basic Metabolic Panel LAB 10/23/24 Logged 05:00 Basic Metabolic Panel LAB 10/24/24 Verified 05:00 Basic Metabolic Panel LAB 10/25/24 Verified 05:00 Basic Metabolic Panel LAB 10/26/24 Verified 05:00 Basic Metabolic Panel LAB 10/27/24 Verified 05:00 Complete Blood Count LAB 10/23/24 Logged 05:00 Complete Blood Count LAB 10/24/24 Verified 05:00 Complete Blood Count LAB 10/25/24 Verified 05:00 Complete Blood Count LAB 10/26/24 Verified 05:00 Complete Blood Count LAB 10/27/24 Verified 05:00 Patient Condition ORDERS 10/22/24 Transmitted 22:09 Allergies LUIS ANTONIO 10/22/24 In Process 22:09 Ondansetron Hcl PHA 10/22/24 In Process (Zofran) 22:15 Enoxaparin Sodium PHA 10/23/24 In Process (Lovenox) 10:00 Sequential LUIS ANTONIO 10/22/24 In Process Compression Device Nitroglycerin PHA 10/22/24 In Process Sublingual (Ntrostat 22:15 Morphine Sulfate PHA 10/22/24 Pending Injection 22:15 Stat Ekg For Chest LUIS ANTONIO 10/22/24 In Process Pain 22:09 Notify Of Changes LUIS ANTONIO 10/22/24 In Process From Base 22:09 Medical Radiation Dosimetrist For LUI SANTONIO 10/22/24 In Process 24 Hours 22:09 Emergency Dysrhythmia LUIS ANTONIO 10/22/24 In Process Protocol 22:09 Rhythm Strips Once LUIS ANTONIO 10/22/24 In Process Every Shift 22:09 Oxygen By Nasal RT 10/22/24 Transmitted Cannula 22:09 Bilat Lower Dvt US 10/22/24 Resulted 22:09 Bi Lat Upper Dvt US 10/22/24 Resulted 22:[address] 10/22/24 Resulted Contrast 22:09 Amlodipine Tablet PHA 10/23/24 In Process (Norvasc Tablet) 10:00 Oxycodone W/ Acet PHA 10/22/24 In Process 5/325mg Tab (Percocet 22:15 * Cardiology Consult CONS 10/23/24 Transmitted 00:34 Date of Service: Oct 23, 2024 Billing Provider: BEE LEE MD Common Visit Codes: NOT BILLABLE BEE LEE MD 10/23/24 1410: Review of Systems Allergies: Coded Allergies: Gabapentin (Unverified Allergy, Severe, anaphylaxis, 04/09/24) Morphine (Verified Allergy, Unknown, 03/15/17) Assessment/Plan Assessment/Plan Patient's chart is reviewed and discussed with the nurse practitioner. The patient is seen evaluated and admitted by nurse practitioner this morning. I agree with his evaluation, documentation, assessment and care plan as outlined. Plan discussed with: Other ANABELA BAI NP Oct 23, 2024 01:57 BEE LEE MD Oct 23, 2024 14:10
[2024-10-23 06:12] LABS: Anion Gap 9 (5-15); Calcium 9.7 mg/dL (8.7-10.4); Carbon Dioxide 26 mmol/L (20-31); Chloride 105 mmol/L (98-107); Potassium 3.8 mmol/L (3.5-5.1); Sodium 140 mmol/L (136-145)
[2024-10-23 06:18] LABS: BUN/Creatinine Ratio 15.6 (10.0-20.0); Blood Urea Nitrogen 12 mg/dL (9-23); Glucose 93 mg/dL (74-106)
[2024-10-23 06:19] LABS: Basophils # (auto) 0 10 ^3/uL (0-0.2); Basophils % (auto) 0.7 % (0.0-2.0); Eosinophils # (auto) 0.1 10 ^3/uL (0-0.8); Eosinophils % (auto) 1.1 % (0.0-7.0); Hematocrit 35.7 % (36.0-46.0); Lymphocytes # (auto) 1.9 10 ^3/uL (0.4-5.4); Mean Corpuscular Hemoglobin 33.7 pg (28.0-32.0); Mean Corpuscular Hgb Conc. 33.7 g/dL (32.0-36.0); Monocytes # (auto) 0.4 10 ^3/uL (0-1.3); Monocytes % (auto) 8.8 % (0.0-12.0); Neutrophils # (auto) 2.6 10 ^3/uL (1.6-8.6); Neutrophils % (auto) 51.4 % (37.0-80.0); Nucleated Red Blood Cells % 0.1 %; Platelet Count (auto) 286 10^3/uL (140-450); Red Blood Cells 3.57 10^6/uL (4.0-5.20); Red Cell Distribution Width 13.5 % (11.8-14.3)
[2024-10-23] MEDS: amLODIPine BESYLATE 5 MG TAB PO SCH (11:52)
[2024-10-23] MEDS: ENOXAPARIN SOD 40 MG/0.4 ML SYRINGE SC SCH (11:53)
--- NOTE | 2024-10-23 15:26 | DVHSR ---
APPROVED REPORT EXAM: Two-dimensional and M-mode echocardiogram with Doppler and color Doppler. Blood Pressure: 139/89 mmHg INDICATION Chest Pain RISK FACTORS Height: 69, Weight: 261 DIMENSIONS LVDd4.7 (3.8-5.7cm)LA (2D)4.6 (1.9-4.0cm)Aortic Root3.9 (2.0-3.7cm) LVDs3.2 (2.5-4.0cm)LA (MM) (1.9-4.0cm)Aortic Cusp Exc2.1 (1.5-2.0cm) EF (%) 60.0 (55-70%)Rt. Atrium4.4 (1.9-4.0cm)Asc. Aorta cm Mitral Valve MitralMitral Stenosis E wave0.73m/sMV Mean GR.mmHg A wave0.67m/sMV Peak GR.mmHg E/A ratio1.12D MVAcm2 DECEL [id number] 1/2 [id number] IVRTmsDop MVA2.47cm2 Aortic Valve Aortic ValveAortic Stenosis V11.13m/Ilene Mean GR.4mmHg V21.38m/Ilene Peak GR.8mmHg LVOT Diameter2.2 (1.8-2.4cm)Doppler AVA3.11cm2 AI P 1/2 Dhfr894.87ms Pulmonic Valve V20.70m/s Tricuspid Valve TR Velocity2.15m/s LDBR20axFo Other Information Technically limited study due to body habitus. Conclusion lvef 60% by visual estimate normal RV function, left atrium enlarged mild no severe valve abnormalities noted
--- NOTE | 2024-10-23 16:31 | DVHINCON2 ---
Date Seen: Oct 23, [address] Norwood Reason for Consultation Chest pain, abnormal EKG. History of Present Illness Patient with a recent C-spine surgery was readmitted with recurrent episodes of chest pain. She describes a chest pressure sensation in her mid sternal area radiating to the left arm. This has occurred on several occasions and in fact it has recurred while she is in the hospital. She has had a history of DVTs in the past. History of vena cava filter. Hypertension. Increased BMI. She is allergic to gabapentin and morphine. Past Medical History Noted history of CVA hypertension myocardial infarction pulmonary embolism. History of hysterectomy. Past Surgical History Hysterectomy. Vena cava filter extraction. Family History: Patient reports no known family medical history. Family History Family history of CAD. Social History Patient states she is a nondrinker nonsmoker. Smokes marijuana. Allergies: Coded Allergies: Gabapentin (Unverified Allergy, Severe, anaphylaxis, 04/09/24) Morphine (Verified Allergy, Unknown, 03/15/17) Home Meds Active Scripts Docusate Sodium (Docusate Sodium) 100 Mg Cap, 100 MG PO BID for 30 Days, #90 CAP Prov:VALENTINA REYES NP 10/15/24 Hydrocodone-Acetaminophen (Hydrocodone Bitartrate/AC 10-325 mg) 1 Tab Tab, 1 TAB PO Q6HP PRN for 10 Days, #40 TAB Prov:VALENTINA REYES NP 10/15/24 Cyclobenzaprine HCl (Cyclobenzaprine Hydrochlo) 10 Mg Tab, 10 MG PO TID for 30 Days, #90 TAB Prov:VALENTINA REYES NP 10/15/24 Cyclobenzaprine HCl (Cyclobenzaprine Hydrochlo) 10 Mg Tab, 10 MG PO BID, #14 TAB Prov:BEE LEE MD 04/21/24 Reported Medications Lisinopril (Lisinopril) 20 Mg Tab, 1 TAB PO DAILY, #30 TAB 5 Refills 04/14/24 Diclofenac Sodium (Diclofenac Sodium Dr) 75 Mg Tab, 75 MG PO, TAB 04/09/24 Hydrochlorothiazide (Hydrochlorothiazide) 25 Mg Tab, 25 MG PO DAILY, TAB 04/09/24 Oxycodone W/ Acetaminophen (Apap/Oxycodone) 1 Tab Tab, 1 TAB PO, TAB 04/09/24 Estrogens, Conjugated (PREMARIN TABLET) 0.3 Mg Tb, 0.9 MG PO, TAB 04/09/24 Metoprolol Succinate (Metoprolol Succinate Er) 25 Mg Tab, 25 MG PO DAILY, TAB 04/09/24 Amlodipine Besylate (Amlodipine Besylate) 10 Mg Tab, 10 MG PO DAILY, TAB 04/09/24 Current Medications Current Medications Medications (Trade) Dose Ordered Sig/Bia Route PRN Reason Start Time Stop Time Status Last Admin Docusate Sodium (Colace Capsule) 100 mg BIDPRN PRN PO FOR CONSTIPATION 10/22/24 22:15 Acetaminophen (Tylenol Tablet) 650 mg Q6HP PRN PO PAIN SCALE 1-3 OR TEMP>100.4 10/22/24 22:15 Ondansetron HCl (Zofran) 4 mg Q4HP PRN IV NAUSEA / VOMITING 10/22/24 22:15 Enoxaparin Sodium (Lovenox) 40 mg DAILY SC 10/23/24 10:00 10/23/24 11:53 Nitroglycerin (Ntrostat Sublingual) 0.4 mg Q5MINP PRN SL FOR CHEST PAIN 10/22/24 22:15 Morphine Sulfate 2 mg Q30M PRN IV FOR CHEST PAIN 10/22/24 22:15 Hold Amlodipine Besylate (Norvasc Tablet) 10 mg DAILY PO 10/23/24 10:00 10/23/24 11:52 Oxycodone/ Acetaminophen (Percocet 5/ 325MG Tablet) 1 tab Q6HP PRN PO MODERATE PAIN (4-6 PAIN SCALE) 10/22/24 22:15 10/23/24 11:53 Review of Systems No constitutional symptoms of fevers chills or weight loss. ENT negative for blurry vision ear discharge ear pain. Cardiac and respiratory as noted above with associated shortness of breath and chest pain. History of orthopnea. GI is negative for distention positive for nausea. No blood in her stool. Genitourinary is negative for bleeding burning or dyspareunia. Neurologically negative for dizziness fainting or headaches. Musculoskeletal negative for gout joint pain or joint swelling other than her neck problems. Integumentary is negative for bruises dryness or lacerations. Allergy and immunology negative for infections hives or itching. Hematologic and lymphatic negative for anemia bruisability or swollen glands. Endocrine is negative for sweating thirst or urination increased urination. Psychiatric is negative for bipolar disorder hopelessness or depression. Vital Signs Vital Signs Date Time Temp Pulse Resp B/P (MAP) Pulse Ox O2 Delivery O2 Flow Rate FiO2 10/23/24 13:00 97.6 87 16 136/98 (111) 96 97.6 10/23/24 08:00 Room Air* 0 21 Physical Exam Vital signs are as noted. HEENT examination was unremarkable orally well hydrated. Trachea central neck is supple thyroid is not palpable no jugular distention no bruits. Lungs reveal good air entry no rales or rhonchi. Heart exam reveals a regular S1-S2 soft S4. Abdominal examination is unremarkable globular abdomen. Extremities reveal adequate perfusion without clubbing or cyanosis no significant edema. Neurologically intact without focal neurologic deficits. Integumentary is otherwise within normal limits. EKG shows ST segment depression across the anterolateral leads. Labs/Diagnostic Data Labs Test 10/23/24 05:20 10/22/24 19:16 10/22/24 16:40 Range/Units White Blood Count 5.0 4.4-10.8 10^3/uL Red Blood Count 3.57 L 4.0-5.20 10^6/uL Hemoglobin 12.0 L 12.2-16.2 g/dL Hematocrit 35.7 L 36.0-46.0 % Mean Corpuscular Volume 100.0 80.0-100.0 fL Mean Corpuscular Hemoglobin 33.7 H 28.0-32.0 pg Mean Corpuscular Hemoglobin Concent 33.7 32.0-36.0 g/dL Red Cell Distribution Width 13.5 11.8-14.3 % Platelet Count 286 140-450 10^3/uL Mean Platelet Volume 8.5 6.9-10.8 fL Neutrophils (%) (Auto) 51.4 37.0-80.0 % Lymphocytes (%) (Auto) 38.0 10.0-50.0 % Monocytes (%) (Auto) 8.8 0.0-12.0 % Eosinophils (%) (Auto) 1.1 0.0-7.0 % Basophils (%) (Auto) 0.7 0.0-2.0 % Neutrophils # (Auto) 2.6 1.6-8.6 10 ^3/uL Lymphocytes # (Auto) 1.9 0.4-5.4 10 ^3/uL Monocytes # (Auto) 0.4 0-1.3 10 ^3/uL Eosinophils # (Auto) 0.1 0-0.8 10 ^3/uL Basophils # (Auto) 0 0-0.2 10 ^3/uL Nucleated Red Blood Cells 0.1 % Sodium Level 140 136-145 mmol/L Potassium Level 3.8 3.5-5.1 mmol/L Chloride Level 105 98-107 mmol/L Carbon Dioxide Level 26 20-31 mmol/L Anion Gap 9 5-15 Blood Urea Nitrogen 12 9-23 mg/dL Creatinine 0.77 0.550-1.02 mg/dL Glomerular Filtration Rate Calc 92 >90 mL/min BUN/Creatinine Ratio 15.6 10.0-20.0 Serum Glucose 93 74-106 mg/dL Calcium Level 9.7 8.7-10.4 mg/dL D-Dimer, Quantitative 2.47 H 0.0-0.49 mg/L FEU Troponin I High Sensitivity 6 </=34 ng/L Urine Color Light-yellow Yellow Urine Clarity Clear Clear Urine pH 6.5 5.0-9.0 Urine Specific [place] 1.022 1.001-1.035 Urine Protein Negative Negative Urine Ketones Negative Negative Urine Blood Negative Negative /uL Urine Nitrite Negative Negative Urine Bilirubin Negative Negative Urine Urobilinogen Normal Negative mg/dL Urine Leukocyte Esterase Negative Negative /uL Urine RBC 1 0 - 4 /hpf Urine Microscopic WBC < 1 0-5 /HPF Urine Squamous Epithelial Cells Few <5 /hpf Urine Bacteria None seen None Seen /hpf Urine Mucus Few None Seen Urine Glucose Normal Normal mg/dL EKG shows sinus rhythm with ST segment depressions and inversions across the inferior and anterolateral leads suggesting ischemia is. They are dynamic changes and noted EKG changes have a transpired. Assessment Chest pain with abnormal EKG is. Recurring symptoms suggest CAD.Hypertension. Hyperlipidemia. Increased BMI. Status post C-spine surgery. Plan/Recommendation Given her recurrent symptomatology suggest cardiac catheterization therapeutic intervention. Blood pressure control. We will put on produce laborer schedule at the earliest possible time. Plan discussed with: Patient NYHA Physical activity limitations: Class3(Marked) ordinary Date of Service: Oct 23, 2024 Billing Provider: PEARL ANNA Sr., MD Cardiology Common Codes: [id number] INP/OBS CARE (High) PEARL ANNA Sr., MD Oct 23, 2024 16:31
[2024-10-23] MEDS ORDERED: OXYCODONE W/ ACETAMINOPHEN 5/325MG TABLET PO PRN (17:00)
[2024-10-23] MEDS: OXYCODONE W/ ACETAMINOPHEN 5/325MG TABLET PO PRN (18:47)
[2024-10-24] VITALS (8 sets, daily range): BP systolic 117–156; BP diastolic 71–95; PULSE 73–94; RESP 15–20; TEMP 97.3–98.3; O2SAT 93–98
[2024-10-24] MEDS: NITROGLYCERIN 0.4 MG SL TAB SL PRN (02:30)
[2024-10-24] MEDS: LORazepam 0.5 MG TAB PO PRN (03:37)
[2024-10-24 09:41] LABS: Basophils # (auto) 0 10 ^3/uL (0-0.2); Eosinophils # (auto) 0.1 10 ^3/uL (0-0.8); Eosinophils % (auto) 1.3 % (0.0-7.0); Hematocrit 36.1 % (36.0-46.0); Hemoglobin 12.3 g/dL (12.2-16.2); Lymphocytes # (auto) 1.5 10 ^3/uL (0.4-5.4); Lymphocytes % (auto) 31.7 % (10.0-50.0); Monocytes # (auto) 0.4 10 ^3/uL (0-1.3); Monocytes % (auto) 7.7 % (0.0-12.0); Neutrophils # (auto) 2.8 10 ^3/uL (1.6-8.6); Neutrophils % (auto) 58.3 % (37.0-80.0); Nucleated Red Blood Cells % 0.1 %; Platelet Count (auto) 296 10^3/uL (140-450); Red Blood Cells 3.61 10^6/uL (4.0-5.20); Red Cell Distribution Width 13.3 % (11.8-14.3); White Blood Cell 4.9 10^3/uL (4.4-10.8)
[2024-10-24 09:49] LABS: Chloride 106 mmol/L (98-107); Potassium 3.8 mmol/L (3.5-5.1); Sodium 139 mmol/L (136-145)
[2024-10-24 09:50] LABS: Anion Gap 8 (5-15); Carbon Dioxide 25 mmol/L (20-31)
[2024-10-24 09:51] LABS: Calcium 9.7 mg/dL (8.7-10.4)
[2024-10-24 09:55] LABS: BUN/Creatinine Ratio 16.7 (10.0-20.0); Blood Urea Nitrogen 14 mg/dL (9-23)
[2024-10-24 09:58] LABS: Glucose 110 mg/dL (74-106)
--- NOTE | 2024-10-24 11:08 | ECG ---
[facility] Test Date: 2024-10-24 Test Time: 01:59:06 Pat Name: SUSI COLLINS Department: Respiratoy Room: [address] [place] [address] 2 Gender: F Measurer: PAN : 1970 Requested By: ANABELA BAI Order Number: [id number] Reading MD: Moi Maurice Measurements Intervals [place] Rate: P: 0 UT: 0 QRS: 0 QRSD: 0 T: 0 QT: 0 QTc: 0 Interpretive Statements All 12 leads are missing Electronically Signed On 10-26-2024 8:15:47 PST by Moi Maurice Please click the below link to view image of tracing.
--- NOTE | 2024-10-24 12:09 | DVHPN2 ---
Progress Note - Dictate Date Seen: Oct 24, 2024 Medical Necessity Reason Pt with a Central, PICC or Fol: No Subjective Clinically stable. Chest pain-free. Evaluated by hair salon manager and tentatively scheduled for angiogram of the heart on Saturday. vital signs Vital Sign Date Time Temp Pulse Resp B/P (MAP) Pulse Ox O2 Delivery O2 Flow Rate FiO2 10/24/24 11:26 156/94 10/24/24 09:00 97.5 81 15 95 97.5 10/24/24 08:00 Nasal Cannula* 1 24 Total Intake and Output 10/23/24 10/23/24 10/24/24 15:00 23:00 07:00 Intake Total 720 ml 500 ml Balance 720 ml 500 ml medications Current Medications Medications Dose Ordered Sig/Bia Route Start Time Stop Time Status Last Admin Dose Admin Docusate Sodium 100 mg BIDPRN PRN PO 10/22/24 22:15 Acetaminophen 650 mg Q6HP PRN PO 10/22/24 22:15 Ondansetron HCl 4 mg Q4HP PRN IV 10/22/24 22:15 Enoxaparin Sodium 40 mg DAILY SC 10/23/24 10:00 10/24/24 11:26 40 MG Nitroglycerin 0.4 mg Q5MINP PRN SL 10/22/24 22:15 10/24/24 02:30 0.4 MG Amlodipine Besylate 10 mg DAILY PO 10/23/24 10:00 10/24/24 11:26 10 MG Oxycodone/ Acetaminophen 2 tab Q6HP PRN PO 10/23/24 17:45 10/24/24 08:36 2 TAB Lorazepam 0.5 mg Q8HP PRN PO 10/24/24 03:00 10/24/24 03:37 0.5 MG objective Comfortable in bed without distress. Heart regular rate and rhythm S1-S2. Lungs without rales wheezes. Abdomen obese soft positive bowel sounds. Extremities no edema laboratory and microbiology Laboratory Tests 10/24/24 09:24 Test 10/24/24 09:24 Range/Units Serum Glucose 110 H 74-106 mg/dL Assessment/Plan Acute chest pain ruled out for any acute coronary ischemia. Evaluated by cardiology recommended coronary angiogram scheduled for Saturday. Meantime continue present management as she is on. Encouraged activity and ambulation. Discussed with the nurse regarding care plan. Problems(with codes): (1) Acute coronary syndrome Plan discussed with: Other BEE LEE MD Oct 24, 2024 12:09
[2024-10-24] MEDS: METOPROLOL SUCCINATE XL 50 MG TAB PO ONE (14:56)
[2024-10-24] MEDS: SENNA 8.6 MG TAB PO SCH (21:06)
[2024-10-24] MEDS: LISINOPRIL 5 MG TAB PO SCH (21:07)
[2024-10-25] VITALS (7 sets, daily range): BP systolic 120–143; BP diastolic 77–97; PULSE 70–80; RESP 16–18; TEMP 85–97.9; O2SAT 90–96
[2024-10-25] MEDS: METOPROLOL SUCCINATE XL 50 MG TAB PO SCH (09:22)
[2024-10-25 13:01] LABS: Partial Thromboplastin Time 33.1 SEC (24.5-34.5); Prothrombin Time 10.6 sec (9.3-11.8)
--- NOTE | 2024-10-25 14:33 | DVHPN2 ---
Progress Note - Dictate Date Seen: Oct 25, 2024 Medical Necessity Reason Pt with a Central, PICC or Fol: No Subjective Clinically stable. Chest pain-free. Evaluated by conveyancer and tentatively scheduled for angiogram of the heart on Saturday. vital signs Vital Sign Date Time Temp Pulse Resp B/P (MAP) Pulse Ox O2 Delivery O2 Flow Rate FiO2 10/25/24 13:00 97.6 70 18 133/77 (95) 94 97.6 10/25/24 08:13 Nasal Cannula* 1 24 Total Intake and Output 10/24/24 10/24/24 10/25/24 15:00 23:00 07:00 Intake Total 1600 ml 700 ml Balance 1600 ml 700 ml medications Current Medications Medications Dose Ordered Sig/Bia Route Start Time Stop Time Status Last Admin Dose Admin Docusate Sodium 100 mg BIDPRN PRN PO 10/22/24 22:15 Acetaminophen 650 mg Q6HP PRN PO 10/22/24 22:15 Ondansetron HCl 4 mg Q4HP PRN IV 10/22/24 22:15 Enoxaparin Sodium 40 mg DAILY SC 10/23/24 10:00 10/25/24 09:20 40 MG Nitroglycerin 0.4 mg Q5MINP PRN SL 10/22/24 22:15 10/24/24 02:30 0.4 MG Amlodipine Besylate 10 mg DAILY PO 10/23/24 10:00 10/25/24 09:21 10 MG Oxycodone/ Acetaminophen 2 tab Q6HP PRN PO 10/23/24 17:45 10/25/24 10:07 2 TAB Lorazepam 0.5 mg Q8HP PRN PO 10/24/24 03:00 10/24/24 03:37 0.5 MG Lisinopril 10 mg BID PO 10/24/24 22:00 10/25/24 09:22 10 MG Metoprolol Succinate 25 mg DAILY PO 10/25/24 10:00 10/25/24 09:22 25 MG Sennosides 8.6 mg HS PO 10/24/24 22:00 10/24/24 21:06 8.6 MG objective Comfortable in bed without distress. Heart regular rate and rhythm S1-S2. Lungs without rales wheezes. Abdomen obese soft positive bowel sounds. Extremities no edema laboratory and microbiology Laboratory Tests 10/24/24 09:24 Test 10/24/24 09:24 Range/Units Serum Glucose 110 H 74-106 mg/dL Assessment/Plan NPO after midnight. We will do follow up labs for tomorrow. Discussed with the nurse. Acute chest pain ruled out for any acute coronary ischemia. Evaluated by cardiology recommended coronary angiogram scheduled for Saturday. Meantime continue present management as she is on. Encouraged activity and ambulation. Discussed with the nurse regarding care plan. Plan discussed with: Other BEE LEE MD Oct 25, 2024 14:33
--- NOTE | 2024-10-25 15:50 | ECG ---
[facility] Test Date: 2024-10-24 Test Time: 02:15:12 Pat Name: SUSI COLLINS Department: Respiratoy Room: [address] [place] [address] 2 Gender: F Mold Filling Operator: PAN : 1970 Requested By: BEE LEE Order Number: [id number] Reading MD: Moi Maurice Measurements Intervals [place] Rate: 79 P: 30 VA: 178 QRS: -11 QRSD: 99 T: -26 QT: 415 QTc: 476 Interpretive Statements Incomplete analysis due to missing data in precordial lead(s) Sinus rhythm Consider RVH w/ secondary repol abnormality Left ventricular hypertrophy Abnormal T, consider ischemia, lateral leads Missing lead(s): V3 Electronically Signed On 10-26-2024 8:15:52 PST by Moi Maurice Please click the below link to view image of tracing.
[2024-10-25] MEDS: LIDOCAINE VISCOUS 2% 15ML UD PO ONE (17:15)
[2024-10-25] MEDS: DONNATAL 5ml ORAL Elix (BELLADONNA ALK-PHENOBARB) PO ONE (18:00)
[2024-10-25] MEDS: MAALOX PLUS or MAALOX 30 ML PO ONE (18:02)
[2024-10-25] MEDS: MORPHINE SULFATE INJ 2 MG/ml SYRG IV PRN (20:16)
[2024-10-26] VITALS (8 sets, daily range): BP systolic 121–144; BP diastolic 79–99; PULSE 65–79; RESP 16–20; TEMP 97.4–98.3; O2SAT 95–99
[2024-10-26 07:42] LABS: Anion Gap 7 (5-15); Carbon Dioxide 25 mmol/L (20-31); Potassium 4.2 mmol/L (3.5-5.1); Sodium 140 mmol/L (136-145)
[2024-10-26 07:43] LABS: Calcium 10.1 mg/dL (8.7-10.4)
[2024-10-26 07:48] LABS: Blood Urea Nitrogen 12 mg/dL (9-23); Glucose 88 mg/dL (74-106)
[2024-10-26 07:50] LABS: Chloride 108 mmol/L (98-107)
[2024-10-26 07:52] LABS: INR 0.97 (0.9-1.15); Partial Thromboplastin Time 31.8 SEC (24.5-34.5); Prothrombin Time 10.3 sec (9.3-11.8)
[2024-10-26 07:56] LABS: Basophils # (auto) 0 10 ^3/uL (0-0.2); Basophils % (auto) 0.6 % (0.0-2.0); Eosinophils # (auto) 0.1 10 ^3/uL (0-0.8); Eosinophils % (auto) 1.3 % (0.0-7.0); Hematocrit 38.6 % (36.0-46.0); Hemoglobin 12.9 g/dL (12.2-16.2); Lymphocytes # (auto) 1.7 10 ^3/uL (0.4-5.4); Lymphocytes % (auto) 34.4 % (10.0-50.0); Mean Corpuscular Hemoglobin 33.6 pg (28.0-32.0); Mean Corpuscular Hgb Conc. 33.3 g/dL (32.0-36.0); Mean Corpuscular Volume 100.7 fL (80.0-100.0); Monocytes # (auto) 0.3 10 ^3/uL (0-1.3); Monocytes % (auto) 5.5 % (0.0-12.0); Neutrophils # (auto) 2.9 10 ^3/uL (1.6-8.6); Neutrophils % (auto) 58.2 % (37.0-80.0); Nucleated Red Blood Cells % 0.1 %; Platelet Count (auto) 313 10^3/uL (140-450); Red Blood Cells 3.84 10^6/uL (4.0-5.20); Red Cell Distribution Width 13.5 % (11.8-14.3)
--- NOTE | 2024-10-26 09:28 | ECG ---
[facility] Test Date: 2024-10-25 Test Time: 16:25:05 Pat Name: SUSI COLLINS Department: Respiratoy Room: [address] [place] [address] 2 Gender: F Paint Specialist: KYLER FRIEDMAN RN : 1970 Requested By: BEE LEE Order Number: [id number] Reading MD: Measurements Intervals [place] Rate: 72 P: 27 MS: 176 QRS: -9 QRSD: 99 T: -21 QT: 419 QTc: 459 Interpretive Statements Sinus rhythm Left ventricular hypertrophy Abnormal T, consider ischemia, anterior leads Baseline wander in lead(s) V6 Please click the below link to view image of tracing.
--- NOTE | 2024-10-26 09:30 | ECG ---
[facility] Test Date: 2024-10-26 Test Time: 04:37:27 Pat Name: SUSI COLLINS Department: Respiratoy Room: [address] [place] [address] 2 Gender: F Trimmer Hand: : 1970 Requested By: BEE LEE Order Number: [id number] Reading MD: Measurements Intervals [place] Rate: 72 P: 38 AK: 186 QRS: 4 QRSD: 96 T: -28 QT: 433 QTc: 474 Interpretive Statements Sinus rhythm Probable left ventricular hypertrophy Nonspecific T abnormalities, anterior leads Please click the below link to view image of tracing.
--- NOTE | 2024-10-26 09:30 | ECG ---
[facility] [place] Test Date: 2024-10-26 Test Time: 04:36:37 Pat Name: SUSI COLLINS Department: Respiratoy Room: [address] [place] [address] 2 Gender: F Shop Technician: : 1970 Requested By: BEE LEE Order Number: [id number] Reading MD: Measurements Intervals [place] Rate: 74 P: 45 AK: 179 QRS: 7 QRSD: 99 T: -19 QT: 433 QTc: 481 Interpretive Statements Sinus rhythm Probable left ventricular hypertrophy Abnormal T, probable ischemia, anterior leads Baseline wander in lead(s) V2,V3 Please click the below link to view image of tracing.
[2024-10-26] MEDS: NITROGLYCERIN 0.2MG/HR TOPICAL PATCH TD SCH (10:00)
--- NOTE | 2024-10-26 16:50 | DVHPN2 ---
Progress Note - Dictate Date Seen: Oct 26, 2024 Medical Necessity Reason Pt with a Central, PICC or Fol: No Subjective Scheduled for angiogram this afternoon. Chest pain free. vital signs Vital Sign Date Time Temp Pulse Resp B/P (MAP) Pulse Ox O2 Delivery O2 Flow Rate FiO2 10/26/24 16:42 98 18 123/77 10/26/24 13:00 98.1 99 98.1 10/26/24 08:00 Nasal Cannula* 2 28 Total Intake and Output 10/25/24 10/25/24 10/26/24 15:00 23:00 07:00 Intake Total 310 ml 600 ml 900 ml Balance 310 ml 600 ml 900 ml medications Current Medications Medications Dose Ordered Sig/Bia Route Start Time Stop Time Status Last Admin Dose Admin Docusate Sodium 100 mg BIDPRN PRN PO 10/22/24 22:15 Acetaminophen 650 mg Q6HP PRN PO 10/22/24 22:15 Ondansetron HCl 4 mg Q4HP PRN IV 10/22/24 22:15 Enoxaparin Sodium 40 mg DAILY SC 10/23/24 10:00 10/25/24 09:20 40 MG Nitroglycerin 0.4 mg Q5MINP PRN SL 10/22/24 22:15 10/24/24 02:30 0.4 MG Amlodipine Besylate 10 mg DAILY PO 10/23/24 10:00 10/25/24 09:21 10 MG Oxycodone/ Acetaminophen 2 tab Q6HP PRN PO 10/23/24 17:45 10/26/24 12:36 2 TAB Lorazepam 0.5 mg Q8HP PRN PO 10/24/24 03:00 10/25/24 21:14 0.5 MG Lisinopril 10 mg BID PO 10/24/24 22:00 10/25/24 21:14 10 MG Metoprolol Succinate 25 mg DAILY PO 10/25/24 10:00 10/25/24 09:22 25 MG Sennosides 8.6 mg HS PO 10/24/24 22:00 10/25/24 21:02 8.6 MG Morphine Sulfate 2 mg Q3HPRN PRN IV 10/25/24 17:15 10/26/24 15:48 2 MG Nitroglycerin 1 patch DAILYPRN TD 10/26/24 10:00 objective Comfortable in bed without distress. Heart regular rate and rhythm S1-S2. Lungs without rales wheezes. Abdomen obese soft positive bowel sounds. Extremities no edema laboratory and microbiology Laboratory Tests 10/26/24 06:45 Test 10/26/24 06:45 Range/Units Serum Glucose 88 74-106 mg/dL Assessment/Plan No changes to present management. Proceed with a coronary angiogram and further clinical management per angiogram findings. Discussed with the nurse. Problems(with codes): (1) Acute coronary syndrome (2) Cervical stenosis of spinal canal (3) Lumbar sprain Plan discussed with: Other BEE LEE MD Oct 26, 2024 16:50
--- NOTE | 2024-10-26 17:21 | ECG ---
[facility] Test Date: 2024-10-25 Test Time: 20:04:01 Pat Name: SUSI COLLINS Department: Respiratoy Room: [address] [place] [address] 2 Gender: F Clinical Radiologist: : 1970 Requested By: SOHA VIVEROS Order Number: [id number] Reading MD: Measurements Intervals [place] Rate: 75 P: 55 NE: 179 QRS: 21 QRSD: 99 T: -38 QT: 422 QTc: 472 Interpretive Statements Sinus rhythm Abnormal R-wave progression, early transition Abnormal T, consider ischemia, diffuse leads Please click the below link to view image of tracing.
[2024-10-27] VITALS (12 sets, daily range): BP systolic 123–144; BP diastolic 79–99; PULSE 62–80; RESP 12–20; TEMP 97.6–98; O2SAT 94–99
[2024-10-27 06:39] LABS: Basophils # (auto) 0 10 ^3/uL (0-0.2); Basophils % (auto) 0.7 % (0.0-2.0); Eosinophils # (auto) 0.1 10 ^3/uL (0-0.8); Eosinophils % (auto) 1.5 % (0.0-7.0); Hematocrit 37.7 % (36.0-46.0); Hemoglobin 12.6 g/dL (12.2-16.2); Lymphocytes # (auto) 1.9 10 ^3/uL (0.4-5.4); Mean Corpuscular Hgb Conc. 33.5 g/dL (32.0-36.0); Mean Corpuscular Volume 101.5 fL (80.0-100.0); Monocytes # (auto) 0.4 10 ^3/uL (0-1.3); Monocytes % (auto) 7.7 % (0.0-12.0); Neutrophils # (auto) 2.2 10 ^3/uL (1.6-8.6); Neutrophils % (auto) 48.1 % (37.0-80.0); Nucleated Red Blood Cells % 0.2 %; Platelet Count (auto) 301 10^3/uL (140-450); Red Blood Cells 3.71 10^6/uL (4.0-5.20); Red Cell Distribution Width 13.6 % (11.8-14.3); White Blood Cell 4.6 10^3/uL (4.4-10.8)
[2024-10-27 06:55] LABS: Anion Gap 8 (5-15); Carbon Dioxide 24 mmol/L (20-31); Chloride 107 mmol/L (98-107); Sodium 139 mmol/L (136-145)
[2024-10-27 06:56] LABS: Calcium 9.9 mg/dL (8.7-10.4)
[2024-10-27 07:01] LABS: BUN/Creatinine Ratio 16.7 (10.0-20.0); Blood Urea Nitrogen 13 mg/dL (9-23); Glucose 96 mg/dL (74-106)
--- NOTE | 2024-10-27 13:21 | DVHOP2 ---
Operative Report - 2 Report Details Date: 10/27/24 Preop Diagnosis: CAD Postop Diagnosis: Normal coronaries Surgeon: Pearl Maurice MD Anesthesiologist: Conscious sedation. Anesthesia: Mac, Local (Conscious sedation given in the form of fentanyl and Versed. I personally monitored the patient throughout the procedure) Consent: The patient was informed of the risks and benefits of the procedure. These include but are not limited to complications of anesthesia, postoperative infection, incomplete relief of symptoms, recurrence of symptoms, damage to blood vessels, nerves and tendons, deep venous thrombosis, pulmonary embolism and possible need for repeat surgery in the future. Complications: No complications Estimated Blood Loss: 2 cc Findings: Normal coronaries Indications for Surgery: Chest pain Name of Procedure Performed Left heart catheterization. Bilateral cine coronary angiography and left ventriculography. Procedure Details Procedure Details: Prior local anesthesia with 2% lidocaine to the right wrist and full informed consent obtained the patient was prepped and draped in the usual fashion followed by placement of a six [place] sheath into the radial artery through which a Sina catheter was used for ventriculography and cannulation of both right and left coronary ostia without complications. Hemodynamics: Aortic blood pressure was 110/70. End-diastolic pressure was eight. There was no gradient across the aortic valve on pullback. Coronary anatomy: The RCA is a large dominant vessel it is normal in its proximal mid and distal segments. PDA and posterolateral branches are normal. Left main is large and normal The left anterior descending is a large vessel it is normal in its proximal mid and distal segments. Diagonals and septals are normal. The circumflex is large with two marginals free of significant disease. Ventriculography in the NELSON projection shows an EF of 60%. Impression: Normal left ventricular end-diastolic pressure at rest. Normal coronary arteries. Recommendations: Medical therapy is warranted risk factor modifications to continue. Condition Good Disposition Still a Patient Date of Service: Oct 27, 2024 Billing Provider: PEARL MAURICE Sr., MD Cardiology Common Codes: 39683-ECZBMTO INP/OBS CARE (High) Cardiology Procedure Codes: 25796-DEFBEI VESSEL W/I VASC FAM, 03094-JMHY HEART CATH W/INTRA INJ PEARL MAURICE Sr., MD Oct 27, 2024 13:21
[2024-10-27] MEDS ORDERED: PANT40TA57 PO ×2 (14:33)
[2024-10-27] MEDS ORDERED: SUCR1SUS26 PO ×2 (14:33)
[2024-10-27] MEDS ORDERED: PHEN1ELX6 PO ×2 (14:33)
--- NOTE | 2024-10-27 14:34 | DVHDS2 ---
Discharge Summary Date of Admission Oct 22, 2024 at 22:09 Date of Discharge: Oct 27, 2024 Labs/Diagnostic Data: Laboratory Results Test 10/27/24 05:48 10/26/24 06:45 10/22/24 19:16 10/22/24 16:40 White Blood Count 4.6 10^3/uL (4.4-10.8) Red Blood Count 3.71 10^6/uL (4.0-5.20) Hemoglobin 12.6 g/dL (12.2-16.2) Hematocrit 37.7 % (36.0-46.0) Mean Corpuscular Volume 101.5 fL (80.0-100.0) Mean Corpuscular Hemoglobin 34.0 pg (28.0-32.0) Mean Corpuscular Hemoglobin Concent 33.5 g/dL (32.0-36.0) Red Cell Distribution Width 13.6 % (11.8-14.3) Platelet Count 301 10^3/uL (140-450) Mean Platelet Volume 7.9 fL (6.9-10.8) Neutrophils (%) (Auto) 48.1 % (37.0-80.0) Lymphocytes (%) (Auto) 42.0 % (10.0-50.0) Monocytes (%) (Auto) 7.7 % (0.0-12.0) Eosinophils (%) (Auto) 1.5 % (0.0-7.0) Basophils (%) (Auto) 0.7 % (0.0-2.0) Neutrophils # (Auto) 2.2 10 ^3/uL (1.6-8.6) Lymphocytes # (Auto) 1.9 10 ^3/uL (0.4-5.4) Monocytes # (Auto) 0.4 10 ^3/uL (0-1.3) Eosinophils # (Auto) 0.1 10 ^3/uL (0-0.8) Basophils # (Auto) 0 10 ^3/uL (0-0.2) Nucleated Red Blood Cells 0.2 % Sodium Level 139 mmol/L (136-145) Potassium Level 4.0 mmol/L (3.5-5.1) Chloride Level 107 mmol/L (98-107) Carbon Dioxide Level 24 mmol/L (20-31) Anion Gap 8 (5-15) Blood Urea Nitrogen 13 mg/dL (9-23) Creatinine 0.78 mg/dL (0.550-1.02) Glomerular Filtration Rate Calc 91 mL/min (>90) BUN/Creatinine Ratio 16.7 (10.0-20.0) Serum Glucose 96 mg/dL (74-106) Calcium Level 9.9 mg/dL (8.7-10.4) Prothrombin Time 10.3 sec (9.3-11.8) Prothrombin Time INR 0.97 (0.9-1.15) Activated Partial Thromboplast Time 31.8 SEC (24.5-34.5) D-Dimer, Quantitative 2.47 mg/L FEU (0.0-0.49) Troponin I High Sensitivity 6 ng/L (</=34) Urine Color Light-yellow (Yellow) Urine Clarity Clear (Clear) Urine pH 6.5 (5.0-9.0) Urine Specific [place] 1.022 (1.001-1.035) Urine Protein Negative (Negative) Urine Ketones Negative (Negative) Urine Blood Negative /uL (Negative) Urine Nitrite Negative (Negative) Urine Bilirubin Negative (Negative) Urine Urobilinogen Normal mg/dL (Negative) Urine Leukocyte Esterase Negative /uL (Negative) Urine RBC 1 /hpf (0 - 4) Urine Microscopic WBC < 1 /HPF (0-5) Urine Squamous Epithelial Cells Few /hpf (<5) Urine Bacteria None seen /hpf (None Seen) Urine Mucus Few (None Seen) Urine Glucose Normal mg/dL (Normal) Other Laboratory Tests 10/27/24 05:48 Brief Hx & Hospital Course: 54-year-old female past medical history of hypertension, hyperlipidemia, and my, DVT presents With complaints of substernal chest pain radiating to the left arm. Symptoms worsen On day of arrival. Patient endorsed Short of breath, diaphoresis,And nausea. Patient recently had elective cervical spine surgery On October 15, 2024. At this time patient denies fevers, chills,Palpitations, nausea, vomiting,Diarrhea, abdominal pain. She is admitted and her troponins have been negative. EKGs and telemetry showed normal sinus rhythm. Patient had intermittent chest pains which are resolved with a GI cocktail. However given her history and compliance she was evaluated Cardiology underwent a successful coronary angiogram today. It did not show any significant coronary artery disease. Recommended medical therapy. Patient counseled and educated regarding diet exercise weight loss and compliant with her medications and follow-ups with her primary care physician as outpatient basis. Patient is advised to continue the GI medications for her chest pain and have outpatient follow up with elective EGD as deemed appropriate. Otherwise given patient clinically remained stable while in the hospital and having had necessary workup and evaluations/cardiac lovelace stable it is felt she can be safely discharged home with outpatient follow up as mentioned. I have talked with the patient's family/daughter at bedside regarding her angiogram finding and discharge medications and follow-up plan of care. She has verbalized understanding of this and agree with the care plan as outlined. Operations or Procedures Operative Report - 2 Report Details Date: 10/27/24 Preop Diagnosis: CAD Postop Diagnosis: Normal coronaries Surgeon: Moi Maurice MD Anesthesiologist: Conscious sedation. Anesthesia: Mac, Local (Conscious sedation given in the form of fentanyl and Versed. I personally monitored the patient throughout the procedure) Consent: The patient was informed of the risks and benefits of the procedure. These include but are not limited to complications of anesthesia, postoperative infection, incomplete relief of symptoms, recurrence of symptoms, damage to blood vessels, nerves and tendons, deep venous thrombosis, pulmonary embolism and possible need for repeat surgery in the future. Complications: No complications Estimated Blood Loss: 2 cc Findings: Normal coronaries Indications for Surgery: Chest pain Name of Procedure Performed Left heart catheterization. Bilateral cine coronary angiography and left ventriculography. Procedure Details Procedure Details: Prior local anesthesia with 2% lidocaine to the right wrist and full informed consent obtained the patient was prepped and draped in the usual fashion followed by placement of a six [place] sheath into the radial artery through which a Sina catheter was used for ventriculography and cannulation of both right and left coronary ostia without complications. Hemodynamics: Aortic blood pressure was 110/70. End-diastolic pressure was eight. There was no gradient across the aortic valve on pullback. Coronary anatomy: The RCA is a large dominant vessel it is normal in its proximal mid and distal segments. PDA and posterolateral branches are normal. Left main is large and normal The left anterior descending is a large vessel it is normal in its proximal mid and distal segments. Diagonals and septals are normal. The circumflex is large with two marginals free of significant disease. Ventriculography in the NELSON projection shows an EF of 60%. Impression: Normal left ventricular end-diastolic pressure at rest. Normal coronary arteries. Recommendations: Medical therapy is warranted risk factor modifications to continue. Condition Good Condition at Discharge: Good Final Diagnosis/Problems List Normal coronaries status post heart catheterization, gastroesophageal reflux disease/chest pain Discharge Disposition: Home Discharge Instruct/Medications Diet: Consistent carbohydrate, Cardiac 2g Na,low cholest Activity: No Restrictions, As Tolerated Follow Up/Referral: Primary care physician after two weeks and referral to sailmaker for elective EGD for any recurrent chest pain Medications: Home medications as per discharge medication list and as prescribed New Medications: Belladonna Alkaloids-Phenobarb () 5 Ml El 10 ML PO BID, #120 ML Pantoprazole Sodium Sesquihydr (Pantoprazole Sodium Dr) 40 Mg Tab 40 MG PO BID, #90 TAB Sucralfate (Carafate Susp) 1 Gm/10 Ml Ss 10 ML PO BID, #600 ML 1 Refill Continued Medications: Amlodipine Besylate (Amlodipine Besylate) 10 Mg Tab 10 MG PO DAILY, TAB Cyclobenzaprine HCl (Cyclobenzaprine Hydrochlo) 10 Mg Tab 10 MG PO BID, #14 TAB Docusate Sodium (Docusate Sodium) 100 Mg Cap 100 MG PO BID for 30 Days, #90 CAP Estrogens, Conjugated (Premarin Tablet) 0.3 Mg Tb 0.9 MG PO, TAB Hydrochlorothiazide (Hydrochlorothiazide) 25 Mg Tab 25 MG PO DAILY, TAB Hydrocodone-Acetaminophen (Hydrocodone Bitartrate/AC 10-325 mg) 1 Tab Tab 1 TAB PO Q6HP PRN for 10 Days, #40 TAB Lisinopril (Lisinopril) 20 Mg Tab 1 TAB PO DAILY, #30 TAB 5 Refills Metoprolol Succinate (Metoprolol Succinate Er) 25 Mg Tab 25 MG PO DAILY, TAB Discontinued Medications: Cyclobenzaprine HCl (Cyclobenzaprine Hydrochlo) 10 Mg Tab 10 MG PO TID for 30 Days, #90 TAB Diclofenac Sodium (Diclofenac Sodium Dr) 75 Mg Tab 75 MG PO, TAB Oxycodone W/ Acetaminophen (Apap/Oxycodone) 1 Tab Tab 1 TAB PO, TAB Discharge Statement: "Patient was advised to return to the ER or call 911 if any headaches, dizziness, shortness of breath, chest pain, abdominal pain, bleeding, fevers, or worsening of medical condition. Patient was counseled about treatment plan, medications, possible side effects, patientverbalized understanding. All questions were answered to the best of my ability. This discharge took greater then 30 minutes in planning, reviewing documentation, counseling the patient, and discussing with other team members." ASSESSMENT ASSESSMENT Assessment Normal coronaries status post heart catheterization, gastroesophageal reflux disease/chest pain BEE LEE MD Oct 27, 2024 14:34
== END 2024-10-27 18:29 | disposition home or self-care (01) | DRG 392 ==
LOC: ER 15:50 → EDBD 15:50 → OVERFLOW 22:09 → TELE-EAST 23:51
PROVIDERS: ADMIT Hospitalist; ATTEND Hospitalist
PROC: 05HC33Z Insertion of Infusion Device into Left Basilic Vein, Percutaneous Approach (ICD-10-PCS; 2024-10-22)
PROC: B54NZZA Ultrasonography of Left Upper Extremity Veins, Guidance (ICD-10-PCS; 2024-10-22)
PROC: 4A023N7 Measurement of Cardiac Sampling and Pressure, Left Heart, Percutaneous Approach (ICD-10-PCS; principal; 2024-10-27)
PROC: B211YZZ Fluoroscopy of Multiple Coronary Arteries using Other Contrast (ICD-10-PCS; 2024-10-27)
PROC: B215YZZ Fluoroscopy of Left Heart using Other Contrast (ICD-10-PCS; 2024-10-27)
DX: K21.9 Gastro-esophageal reflux disease without esophagitis (principal); I10 Essential (primary) hypertension; E78.5 Hyperlipidemia, unspecified; F12.90 Cannabis use, unspecified, uncomplicated; Z85.43 Personal history of malignant neoplasm of ovary; Z88.5 Allergy status to narcotic agent; Z88.8 Allergy status to other drugs, medicaments and biological substances; Z79.899 Other long term (current) drug therapy; Z87.891 Personal history of nicotine dependence; I25.2 Old myocardial infarction; Z86.718 Personal history of other venous thrombosis and embolism; Z90.710 Acquired absence of both cervix and uterus; Z82.49 Family history of ischemic heart disease and other diseases of the circulatory system; Z86.711 Personal history of pulmonary embolism; Z86.73 Personal history of transient ischemic attack (TIA), and cerebral infarction without residual deficits
CPT/HCPCS: 36415; 71045; 71275; 80048; 81001; 84484; 85025; 85379; 85610; 85730; 86850; 86900; 86901; 93005; 93306; 93458; 93970; 96374; 96375; 97116; 97163; 97530; 99152; 99291; G0378; J2405